=== PATIENT | male | born 1975 | race Caucasian/White ===

== ENCOUNTER 2021-12-13 16:24 | Inpatient (IN) | payer SELFPAY ==
[2021-12-13 16:26] VITALS: BP 153/101; PULSE 121; RESP 17; TEMP 36.3; O2SAT 96; BMI 31.0
--- NOTE | 2021-12-13 16:50 | EX.ED.SAOD ---
HPI History of Present Illness Chief Complaint: Substance Abuse Informant: patient Onset/Context/Timing Onset: Weeks Context: Gradual Onset Timing: Continuous Current Severity: Mild Maximum Severity: Mild Associated Symptoms Associated Symptoms: Positive for vomiting* and diarrhea*; Negative for fever*, rash*, seizure, tremor and palpatations Narrative Narrative: 46-year-old male has a history of diabetes diet-controlled and alcohol abuse. States he drinks about a liter of vodka a day. His last detox was about a year ago was in [place] and he went to [place] for 30 days. He is enrolled in a program in [place] but he has to go through inpatient detox first before they can take him there so he and his family are asked and he can be detox here in the hospital and then they will drive him to [place] to start the program. Prior similar symptoms: Yes Recent Illness/Hospitalization: No PFSH PFSH Medical History Acute alcoholism Alcohol abuse Diabetes mellitus, type 2 HLD (hyperlipidemia) Hypertension Tobacco use Home Medications NK 12/13/21 [History Last Taken Unknown] Allergy/AdvReac Type Severity Reaction Status Date / Time No Known Allergies Allergy Verified 12/13/21 16:26 Surgical History (Updated 12/13/21 @ 17:[address] Gill Campos MD) No history of previous surgery Social History (Updated 12/13/21 @ 17:[address] Gill Campos MD) household members: none Smoking Status: Current every day smoker tobacco type: cigarettes alcohol intake: current alcohol intake frequency: 3 or more drinks per day details: 1 pint-1L 80 proof vodka daily, started age 16. substance use type: does not use ROS ROS ED ROS Narrative Nausea and vomiting. Review of Systems ROS Unobtainable: Denies due to encephalopathy Constitutional Constitutional ED: Denies fever(s) or subjective Eyes Eyes: Denies change in vision ENT ENT ED: Denies ear pain or rhinorrhea Cardiovascular Cardiovascular: Denies chest pain or palpitations Respiratory/Chest Respiratory/Chest: Denies cough or dyspnea Gastrointestinal Gastrointestinal: Reports diarrhea, nausea and vomiting; Denies abdominal pain Genitourinary Genitourinary ED: Denies dysuria or urinary frequency Musculoskeletal Musculoskeletal: Reports back pain; Denies arthralgias or myalgias Integumentary Denies abscess or rash Neurologic Neurologic: Denies headache(s) Psychiatric Psychiatric: Denies anxiety or depression Endocrine Endocrinology: Denies polydipsia or polyuria Hematologic/Lymphatic Hematologic/Lymphatic: Denies easy bruising Allergic/Immunologic Allergic/Immunologic ED: Denies urticaria EXAM Physical Exam Narrative Exam Narrative: 46-year-old male no acute distress vital signs stable afebrile. He does have elevated blood pressure 153/101. Otherwise stable. Afebrile. H EENT exam unremarkable. Atraumatic. Lungs are clear. Heart regular rhythm rate of 120. No murmur. Abdomen soft nontender normal bowel sounds no peritoneal signs. Moving all 4 extremities. Neurologically is awake and alert with no focal motor deficits. Const Vital Signs: 12/13/21 16:26 Temperature 97.3 F L Temperature Source Temporal Pulse Rate 121 H Respiratory Rate 17 Blood Pressure 153/101 H Blood Pressure Mean 118 Pulse Ox 96 Oxygen Delivery Method Room Air Positive well nourished, well developed and obese; Negative for cachectic, contractures or unkempt General Appearance ED: well developed and NAD; Negative for unkempt, cachectic, contractures or pallor Nutritional Appearance: obese; Negative for cachectic HEENT Reports moist mucous membranes atraumatic; Negative for trauma or tenderness Eyes PERRL and EOMs intact bilaterally General Eye ED: Negative for pale conjunctiva or scleral icterus Neck no lymphadenopathy and no JVD Thyroid: Negative for tender Lymph Lymphatic: no lymphadenopathy noted; Negative for lymphadenopathy Chest Wall inspection of chest normal and palpation of chest normal Resp normal respiratory effort and clear to auscultation bilaterally Auscultation: Negative for rales, rhonchi, wheezes or other Cardio regular rhythm, S1 normal heart sound, S2 normal heart sound and no murmurs; Negative for regular rate Rate: tachycardic GI soft to palpation, non-tender, non-distended and no masses Inspection: Negative for abdominal distention Palpation: Negative for tender, guarding or rigid Back/Spine no CVA tenderness General Back: Negative for CVA tenderness Extremity General Extremety ED: Negative for edema or tenderness General Extremity: Negative for edema Neuro oriented x3 Sensorium / Orientation: alert, oriented to person, oriented to place and oriented to time Motor Exam: strength 5/5 throughout Psych mental status grossly normal and thought process normal Appearance: Negative for unkempt Attitude: No agitated Mood & Affect: Negative for depressed or tearful Skin General Skin Exam: Negative for jaundice or pallor Lesions: no lesions Rashes: no rashes MDM MDM MDM Narrative Medical decision making narrative: 46-year-old male requesting detox for alcohol abuse. Screening labs being obtained. I have already discussed with the hospitalist and they will be down to evaluate the patient for admission. Lab Data Attestation: I reviewed the patient's lab results. Lab results narrative: CBC shows a white count of 5. H&H 13 and 40. Platelets 174. Chemistries show potassium 3.3 gap of 20 BUN/creatinine 11 and 0.9. Liver enzymes total bilirubin, AST and ALT are elevated. Labs: Laboratory Results - last 24 hr 12/13/21 12/13/21 12/13/21 16:50 16:50 16:50 WBC 5.6 RBC 4.28 L Hgb 13.9 Hct 40.3 MCV 94.2 H MCH 32.5 H MCHC 34.5 RDW Std Deviation 44.0 H RDW Coeff of Sean 12.7 Plt Count 174 MPV 11.6 Immature Gran % (Auto) 0.400 Neut % (Auto) 54.1 Lymph % (Auto) 27.4 [place] % (Auto) 16.6 H Eos % (Auto) 0.2 Baso % (Auto) 1.3 H Absolute Neuts (auto) 3.0 Absolute Lymphs (auto) 1.52 Nucleated RBC % 0 Sodium 134 L Potassium 3.3 L Chloride 93 L Carbon Dioxide 21.0 Anion Gap 20 H BUN 11 Creatinine 0.94 Estim Creat Clear Calc 115.38 Est GFR (MDRD) Af Amer 111 Est GFR (MDRD) Non-Af 92 BUN/Creatinine Ratio 11.7 Glucose 88 Calcium 9.3 Phosphorus 2.4 L Magnesium 1.6 Total Bilirubin 2.50 H AST 328 H ALT 239 H Alkaline Phosphatase 84 Total Protein 9.0 H Albumin 4.2 Globulin 4.8 H Albumin/Globulin Ratio 0.9 Discharge Plan Dx/Rx/DC Orders Clinical Impression: Admitted to alcohol detoxification center, Acute alcoholism, History of diabetes mellitus Disposition Disposition: [facility] Discharge Date/Time: 12/13/21 17:43
--- NOTE | 2021-12-13 16:59 | HP.PCM.HOS_ITS ---
HPI - General General Date of Admission: 12/13/21 Date of Service: 12/13/21 Chief Complaint: Acute EtOH Withdrawal HPI Narrative The patient is a 46 y/o M w/ PMHx: EtOH abuse (1 pint-1L 80 proof vodka daily since ~ 16 years old), HTN, HLD, Tobacco use, Diabetes mellitus type II diagnosed ~ 1 year prior but svetlana taken any treatments who presents to the [facility] on 12/13/21 w/ noted acute EtOH withdrawal, onset starting on day of presentation following last EtOH intake this AM with onset of nausea, mild tremors. He notes having been through detox once prior in [place]. He admits to depression and anxiety with ongoing divorce in play. Patient interested in attaining sober status. Last drink was in AM on day of presentation. He appears anxious, tremulous, nausea with emesis in the ED upon evaluation. Work-up in the ED included T 97.3, HR 121, BP 153/101, RR 17, 96% on RA, pending CBC, CMP, UDS, EtOH level pending upon evaluation. [facility] Medical History Acute alcoholism Alcohol abuse Diabetes mellitus, type 2 HLD (hyperlipidemia) Hypertension Tobacco use Home Medications NK 12/13/21 [History Last Taken Unknown] Allergy/AdvReac Type Severity Reaction Status Date / Time No Known Allergies Allergy Verified 12/13/21 16:26 adopted (Does not know any maternal/paternal family history.) Surgical History (Updated 12/13/21 @ 17:[address] Gill Campos MD) No history of previous surgery no surgical history Social History (Updated 12/13/21 @ 17:[address] Gill Campos MD) household members: none Smoking Status: Current every day smoker tobacco type: cigarettes Smoking packs per day: 1 Smoking cigarettes per day: 20.0 Years smoked: 1 Smoking pack-years: 1.00 alcohol intake: current alcohol intake frequency: 3 or more drinks per day details: 1 pint-1L 80 proof vodka daily, started age 16. substance use type: does not use ROS ROS Narrative Admission Review of Systems: CONSTITUTIONAL: No weight loss, fever, chills, + weakness or fatigue. HEENT: Eyes: No visual loss, blurred vision, double vision or yellow sclerae. Ears, Nose, Throat: No hearing loss, sneezing, congestion, runny nose or sore throat. SKIN: No rash or itching, lesions, wounds. CARDIOVASCULAR: No chest pain, chest pressure or chest discomfort, palpitations, edema, orthopnea, syncopal events. RESPIRATORY: No shortness of breath, cough or sputum, wheezing, hemoptysis. GASTROINTESTINAL: + Anorexia, nausea, vomiting, No diarrhea, abdominal pain, melena, BRBPR. GENITOURINARY: No dysuria, frequency, urgency or retention. NEUROLOGICAL: + Tremors, No headache, dizziness, syncope, paralysis, ataxia, numbness or tingling in the extremities, focal weakness, change in bowel or bladder control, seizure. MUSCULOSKELETAL: No muscle, back pain, joint pain or stiffness. HEMATOLOGIC: No anemia, bleeding or bruising. LYMPHATICS: No enlarged nodes. No history of splenectomy. PSYCHIATRIC: + history of depression or anxiety. ENDOCRINOLOGIC: No reports of sweating, cold or heat intolerance. No polyuria or polydipsia. ALLERGIES: No history of asthma, hives, eczema or rhinitis. Vital Signs Vital Signs Vital Signs: 12/13/21 16:26 Temperature 97.3 F L Temperature Source Temporal Pulse Rate 121 H Respiratory Rate 17 Blood Pressure 153/101 H Blood Pressure Mean 118 Pulse Ox 96 Oxygen Delivery Method Room Air Weight Weight: 241 lb 10.026 oz Body Mass Index (BMI) 31.0 Physical Exam Narrative Physical Examination: General: Awake, alert, oriented x 3 and cooperative, seated upright in the ED bed, nauseous, bouts of emesis while present. Skin: Normal color, normal turgor, no icterus, no cyanosis. HEENT: AT/NC, EOMI, PERRLA, dry MM, no carotid bruits or JVD noted. Lungs: Mild diminished, greater bases, appropriate effort no rales, ronchi or wheezing. Heart: Tachycardic with regular rhythm; no gallop, rub audible. Abdomen: Soft, NTTP, ND, hyperactive BS, mild HM Extremities: No cyanosis, clubbing, or edema. Neurological: Patient awake, alert, oriented as noted, cognitive function intact; pupils equally reactive to light and accommodation, cranial nerves II- XII grossly normal, moving all 4 extremities, no focal deficits, strength moderately global decrease secondary to acute presentation, tremulous. Psychiatric: Affect appears fatigued, ill-appearing, tearful with discussions with admission of depression and anxiety. Results Lab / Micro Data Result Diagrams: 12/13/21 16:50 12/13/21 16:50 Assessment & Plan Assessment/Plan (1) Alcohol withdrawal: QUALIFIERS: Complication of substance-induced condition: uncomplicated Qualified Code(s): F10.230 - Alcohol dependence with withdrawal, uncomplicated PLAN: The patient is a 46 y/o M w/ PMHx: EtOH abuse (1 pint-1L 80 proof vodka daily since ~ 16 years old), HTN, HLD, Tobacco use, Diabetes mellitus type II diagnosed ~ 1 year prior but svetlana taken any treatments who presents to the [facility] on 12/13/21 w/ noted acute EtOH withdrawal, onset starting on day of presentation. #1. Acute EtOH Withdrawal: Will admit to MS, routine labs obtained in the ED upon presentation and pending upon evaluation. Given interest in sobriety, will initiate and continue on protocol with taper course of Phenobarbital, scheduled gabapentin for seizure prophylaxis, as needed Catapres, Bentyl, Vistaril, IV fluids, IV antiemetics, Tylenol as needed for pain. Will consult Case management for assistance for transition to next level of rehabilitation care. Mag, phos pending. Maintain on CIWA protocol concurrently. #2. Diabetes mellitus type II: From current list denies any medications, noting diabetic history, will obtain A1c to be cautious, in the interim we will maintain on ADA diet, accu checks w/ ISS. #3. Anxiety and Depression: Not on regimen, playing a large role in his abuse, will benefit from medications and counseling with next phase of his treatment. #4. Hypertension: Patient with hypertensive history, BP is elevated in the ED however presenting with acute withdrawal, not on regimen, will continue to monitor and add oral regimen if appropriate, as needed IV hydralazine in interim. #5. Hyperlipidemia: Not on regimen, defer to outpatient. #6. Tobacco Abuse: Encouraged cessation, inpatient consultation per RT, NR if desired. #7. Obesity: Weight loss and lifestyle changes encouraged. #8. DVT prophylaxis: Low risk given presentation, encourage ambulation. Charges/Coding Visit Charges Inpatient E&M: 96045 Init Hosp L3
[2021-12-13 17:05] LABS: Absolute Lymphocyte Count 1.52 X10^3/uL (0.83-4.51); Basophil# 0.07 X10^3/uL; Basophil% 1.3 % (0-1); Eosinophil# 0.01 X10^3/uL; Eosinophils% 0.2 % (0-5); Hematocrit 40.3 % (40-54); Hemoglobin 13.9 g/dL (13.0-16.5); Lymphocyte # 1.52 X10^3/ul (0.83-4.51); Lymphocyte % 27.4 % (19-41); Mean Corp Hgb Conc 34.5 g/dL (32-36); Mean Corpuscular Hgb 32.5 pg (27.0-32.0); Mean Corpuscular Volume 94.2 fL (80-94); Mean Platelet Vol. 11.6 fl (6.2-12.0); Monocyte# 0.92 X10^3/uL; Monocyte% 16.6 % (0-10); NRBC Flagged by Analyzer 0 % (0-5); Neutrophil # 3.01 X10^3/uL (2.7-7.7); Neutrophil % 54.1 % (47-70); Platelet Count 174 K/mm3 (150-450); RBC Distribution Width CV 12.7 % (11.6-14.6); Red Blood Count 4.28 M/mm3 (4.6-6.2); White Blood Count 5.6 K/mm3 (4.4-11.0)
[2021-12-13 17:06] VITALS: BP 153/101; PULSE 121; RESP 17; TEMP 36.3; O2SAT 96
[2021-12-13 17:36] LABS: Phosphorus 2.4 mg/dL (2.5-4.9)
[2021-12-13 17:37] LABS: ALB/GLOB Ratio 0.9 RATIO (0.9-2.4); AST(SGOT) 328 U/L (15-37); Alanine Aminotransfer ALT/SGPT 239 U/L (16-61); Albumin, Serum 4.2 g/dL (3.2-5.0); Alkaline Phosphatase 84 U/L (45-117); Anion Gap 20 (5-15); BUN 11 mg/dL (7-18); BUN/Creat Ratio 11.7 RATIO (10-20); Calcium,Total 9.3 mg/dL (8.5-10.1); Chloride 93 mmol/L (98-107); Creatinine, Serum 0.94 mg/dL (0.70-1.30); EST Glomerular Filtration Rate 92 mL/min (>60); Est Glom Filt Rate - Afr Amer 111 mL/min (>60); Estimated Creatinine Clearance 115.38 ml/min; Globulin 4.8 g/dL (2.2-4.2); Glucose 88 mg/dL (74-106); Magnesium 1.6 mg/dL (1.6-2.6); Potassium 3.3 mmol/L (3.5-5.1); Sodium Level 134 mmol/L (136-145)
[2021-12-13 17:48] VITALS: BMI 30.5
[2021-12-13 17:58] LABS: Amphetamine Urine VISTA NEGATIVE (<1000 ng/mL); Barbiturate Urine VISTA NEGATIVE (< 200 ng/mL); Benzodiazepine Urine VISTA NEGATIVE (< 200 ng/mL); Cocaine Urine VISTA NEGATIVE (< 300 ng/mL); Ecstacy Urine VISTA NEGATIVE (< 500 ng/mL); Methadone Urine VISTA NEGATIVE (< 300 ng/mL); PCP Urine VISTA NEGATIVE (< 25 ng/mL); THC Urine VISTA NEGATIVE (< 50 ng/mL); Vista UDS pH Range 6
[2021-12-13] MEDS: Lactated Ringers 1,000 ML 125 ML IV (18:52)
[2021-12-13] MEDS: Phenobarbital 32.4 MG Tablet 64.8 MG PO ×2 (18:56→22:18)
[2021-12-13] MEDS: Ibuprofen 600 MG Tablet PO (18:59)
[2021-12-13] MEDS: Dicyclomine 10 MG Capsule 20 MG PO (19:00)
[2021-12-13] MEDS: Gabapentin 300 MG Capsule PO (19:00)
[2021-12-13 19:45] VITALS: O2SAT 96
[2021-12-13 20:27] VITALS: BP 150/92; PULSE 93; RESP 16; TEMP 36.6; O2SAT 97
[2021-12-13] MEDS: traZODone 100 MG Tablet PO (22:18)
[2021-12-13 22:25] LABS: Bedside Glucose 87 mg/dL (74-106)
[2021-12-14] VITALS (7 sets, daily range): BP systolic 137–160; BP diastolic 71–95; PULSE 71–93; RESP 16–18; TEMP 36.6–37.3; O2SAT 97–100
[2021-12-14] MEDS: Phenobarbital 32.4 MG Tablet 64.8 MG PO ×6 (02:19→21:54)
[2021-12-14] MEDS: Ondansetron 4 MG/2 ML Vial IV (02:24)
[2021-12-14] MEDS: Ibuprofen 600 MG Tablet PO ×2 (02:24→13:23)
[2021-12-14] MEDS: 0.9% Saline Lock 10 ML Syringe IV ×2 (02:24→18:13)
[2021-12-14] MEDS: Dicyclomine 10 MG Capsule 20 MG PO (06:12)
[2021-12-14] MEDS: Acetaminophen 325 MG Tablet 650 MG PO ×2 (06:12→16:01)
[2021-12-14] MEDS: hydrOXYzine PAM 25 MG Capsule 50 MG PO ×2 (06:12→13:24)
[2021-12-14 06:25] LABS: Bedside Glucose 89 mg/dL (74-106)
[2021-12-14 07:45] LABS: Hemoglobin A1c 4.9 % (3.8-5.6)
[2021-12-14] MEDS: Gabapentin 300 MG Capsule PO ×2 (08:22→18:13)
[2021-12-14] MEDS: Folic Acid 1 MG Tablet PO (08:22)
[2021-12-14] MEDS: Thiamine Hydrochloride 100 MG Tablet PO (08:22)
--- NOTE | 2021-12-14 09:39 | PN.HOSP_ITS ---
Subjective Subjective Patient seen and examined. He complains of some back pain which is chronic, and also complains of some anxiety and tremors. REview of systems is otherwise negative. Objective Data Objective Data Vital Signs: Vital Signs Temp Pulse Resp BP Pulse Ox 99.1 F 76 18 152/86 H 98 12/14/21 08:18 12/14/21 08:18 12/14/21 08:18 12/14/21 08:18 12/14/21 08:18 Oxygen Delivery Method Room Air Weight: 238 lb Body Mass Index (BMI) 30.5 Intake & Output: Intake and Output for Last 24 Hours 12/12/21 12/13/21 12/14/21 23:59 23:59 23:59 Intake Total 1899 / 1899 Balance 1899 Lab / Micro Data Result Diagrams: 12/13/21 16:50 12/13/21 16:50 Labs: Laboratory Results - last 24 hr 12/13/21 16:50: WBC 5.6, RBC 4.28 L, Hgb 13.9, Hct 40.3, MCV 94.2 H, MCH 32.5 H, MCHC 34.5, RDW Std Deviation 44.0 H, RDW Coeff of Sean 12.7, Plt Count 174, MPV 11.6, Immature Gran % (Auto) 0.400, Neut % (Auto) 54.1, Lymph % (Auto) 27.4, [place] % (Auto) 16.6 H, Eos % (Auto) 0.2, Baso % (Auto) 1.3 H, Absolute Neuts (auto) 3.0, Absolute Lymphs (auto) 1.52, Nucleated RBC % 0 12/13/21 16:50: Sodium 134 L, Potassium 3.3 L, Chloride 93 L, Carbon Dioxide 21.0, Anion Gap 20 H, BUN 11, Creatinine 0.94, Estim Creat Clear Calc 115.38, Est GFR (MDRD) Af Amer 111, Est GFR (MDRD) Non-Af 92, BUN/Creatinine Ratio 11.7, Glucose 88, Calcium 9.3, Magnesium 1.6, Total Bilirubin 2.50 H, AST 328 H, ALT 239 H, Alkaline Phosphatase 84, Total Protein 9.0 H, Albumin 4.2, Globulin 4.8 H , Albumin/Globulin Ratio 0.9 12/13/21 16:50: Ethyl Alcohol 196.0 12/13/21 16:50: Phosphorus 2.4 L 12/13/21 17:24: Urine Opiates Screen NEGATIVE, Urine Methadone Screen NEGATIVE, Ur Barbiturates Screen NEGATIVE, Ur Phencyclidine Scrn NEGATIVE, Ur Amphetamines Screen NEGATIVE, MDMA (Ecstasy) Screen NEGATIVE, U Benzodiazepines Scrn NEGATIVE, Urine Cocaine Screen NEGATIVE, U Cannabinoids Screen NEGATIVE, Ur Drug Screen Comment 12/13/21 22:21: POC Glucose 87 12/14/21 05:16: Hemoglobin A1c 4.9 12/14/21 06:17: POC Glucose 89 Physical Exam Const alert, oriented x3 and no apparent distress Exam Limitations: no limitations HEENT head/scalp atraumatic and moist oral mucous membranes Head and Scalp: normocephalic Eyes PERRL, EOMs intact bilaterally and conjunctivae normal Neck no lymphadenopathy, supple and no JVD Resp normal respiratory effort, no retractions, no use of accessory muscles and clear to auscultation bilaterally Cardio regular rate, regular rhythm, S1 normal heart sound, S2 normal heart sound and no murmurs GI normal to inspection, nondistended, normoactive bowel sounds, soft to palpation, non-tender and non-distended Extremity normal to inspection, full ROM and no clubbing, cyanosis or edema Peripheral Pulses: Yes pulses 2+ throughout Skin no rashes or lesions noted Neuro oriented x3, CN's II-XII intact bilaterally and moves all extremities Sensorium / Orientation: awake and alert Psych affect normal Assessment & Plan Assessment/Plan (1) Alcohol withdrawal: QUALIFIERS: Complication of substance-induced condition: uncomplicated Qualified Code(s): F10.230 - Alcohol dependence with withdrawal, uncomplicated PLAN: #Acute alcohol withdrawal * on alcohol withdrawal protocol with phenobarbital * monitor CIWA score * thiamine, multivite and folic acid * adjunctive meds for symptomatic relief * #Hypokalemia: K was 3.3 yesterday and was replaced. Repeat BMP pending today #Elevated BP: * BP is 152/86. Not a known hypertensive. * May be because of alcohol withdrawal. on clonidine prn which should help with BP. * If it remains elevated, will consider starting oral BP meds * #Elevated liver enzymes * total bilirubin was 2.5 and AST/ALT are 328/239 * likely due to chronic alcohol abuse. * WIll monitor #TYpe 2 diabetes mellitus * appears to be diet controlled * ISS. Accuchecks ACHS * #Nicotine dependence: counseled to quit. DVT prophylaxis; low risk, counseled to ambulate Charges/Coding Visit Charges Inpatient E&M: 32434 Subs Hosp L2
[2021-12-14 10:36] LABS: Anion Gap 10 (5-15); BUN 11 mg/dL (7-18); BUN/Creat Ratio 14.3 RATIO (10-20); Calcium,Total 9.1 mg/dL (8.5-10.1); Chloride 95 mmol/L (98-107); Creatinine, Serum 0.77 mg/dL (0.70-1.30); EST Glomerular Filtration Rate 116 mL/min (>60); Est Glom Filt Rate - Afr Amer 140 mL/min (>60); Estimated Creatinine Clearance 140.85 ml/min; Glucose 79 mg/dL (74-106); Sodium Level 132 mmol/L (136-145)
[2021-12-14 11:01] LABS: Bedside Glucose 154 mg/dL (74-106)
[2021-12-14 13:02] LABS: Magnesium 1.7 mg/dL (1.6-2.6)
--- NOTE | 2021-12-14 13:04 | ADDICTION ---
This typewriter aligner met with PT to conduct ASAM, MSE, AUDIT, DUDIT assessments and to plan for d/c. PT A+Ox4 and participated actively. All assessments completed and placed in PT's chart. PT plans to f/u with follow-up treatment services, however he wanted to discuss it with his family upon d/c. This worker offered resources based on his listed wants and needs. PT did not indicate a need for transportation post d/c from [facility].
[2021-12-14] MEDS: Potassium Chloride Oral Tablet 20 MEQ 60 MEQ PO (13:23)
[2021-12-14 15:55] LABS: Bedside Glucose 114 mg/dL (74-106)
--- NOTE | 2021-12-14 16:03 | CHAPLAIN ---
Type of Pastoral Visit _x__ Initial Visit ___ Follow-up Visit ___ On-call Visit ___ General Patient Visit ___ Spiritual Assessment ___ Family Conference ___ Bereavement ___ Rapid Response ___ Code Blue ___ Other (describe below) Pastoral Care Referral From _x__ Patient ___ Family ___ Nurse ___ Physician ___ High School Music Director ___ Induction Coordination Engineer ___ Other (describe below) Sacrament/Intervention _x__ Active listening ___ Anointing ___ Shinto ___ Bereavement ___ Communion _x__ Estefani exploration ___ _x__ Life review _x__ Prayer ___ Reconciliation ___ Sacrament of Sick _x__ Supportive presence ___ Wedding ___ Other (describe below) Pastoral Comments found patient to be awake and watching TV; pt is welcoming of spiritual care visit; pt discloses that there are lots of things going on in his life and now he is making a decision about what kind of treatment he should enter; pt is now living alone which contributes to my drinking; pt speaks of his mother's and her great estefani in God; pt states I am slowly getting close to God in my life; asked to describe this comment opened up more conversation about his spiritual needs and desires; pt welcomed a prayer and asked for a Bible; Bible given with offer of future support as desired; pt expresses thanks for taking time to talk with him
--- NOTE | 2021-12-14 16:16 | CASEMGMT ---
Social Work Note Pt is RAMP pt. Pt is also listed as self-pay. SW in to speak with pt. SW introduced self and role at [facility]. Pt confirms he has no insurance, states he just lost his job a few weeks ago. SW asked pt if he had applied for Medicaid yet and pt states no. SW provided pt with Medicaid Application and informed pt that if he completes application while at [facility], then this worker can fax over Medicaid Application to [facility]. SW also provided pt with HCAP application and Prescription Home resources. Pt asked what the location is for [facility] and this worker informed pt that this worker doens't know, can look up the information and provided information to pt. Pt states understanding. KATHY unable to provide pt with [facility] Financial Resources as pt is not a resident of [facility]. SW looked up [facility] contact information. SW printed off contact information and provided information to pt. Pt asked this worker how long insurance lasts once pt doesn't have a job. SW informed pt that this worker is not sure, encouraged pt to follow up with his employer once he leaves [facility]. SW informed pt that he can also talk to his employer about COBRA. Pt states understanding, asked about getting prescriptions covered. SW informed pt that once pt is discharged, his prescriptions will be sent to his pharmacy and if he cannot afford them, there are prescription assistance resources such as [facility] that can assist pt with prescriptions. Pt states understanding, denied additional needs or concerns at this time. Suni Nicole PILE FABRIC KNITTER, TAPE RECORDER MECHANIC
[2021-12-14] MEDS: hydrALAZINE 20 MG/ML Vial 10 MG IV (18:13)
[2021-12-14] MEDS: traZODone 100 MG Tablet PO (21:56)
[2021-12-15 02:14] VITALS: BP 147/90; PULSE 78; RESP 16; TEMP 36.6; O2SAT 99
[2021-12-15] MEDS: Phenobarbital 32.4 MG Tablet 64.8 MG PO ×6 (02:14→21:31)
[2021-12-15 02:16] LABS: Bedside Glucose 117 mg/dL (74-106)
[2021-12-15] MEDS: hydrOXYzine PAM 25 MG Capsule 50 MG PO ×3 (06:17→16:18)
[2021-12-15] MEDS: Acetaminophen 325 MG Tablet 650 MG PO ×2 (06:17→14:19)
[2021-12-15 06:30] LABS: Bedside Glucose 114 mg/dL (74-106)
[2021-12-15 06:51] LABS: Anion Gap 7 (5-15); BUN 7 mg/dL (7-18); BUN/Creat Ratio 8.5 RATIO (10-20); Calcium,Total 9.1 mg/dL (8.5-10.1); Chloride 101 mmol/L (98-107); Creatinine, Serum 0.83 mg/dL (0.70-1.30); EST Glomerular Filtration Rate 107 mL/min (>60); Est Glom Filt Rate - Afr Amer 129 mL/min (>60); Estimated Creatinine Clearance 130.67 ml/min; Glucose 99 mg/dL (74-106); Sodium Level 137 mmol/L (136-145)
[2021-12-15 07:45] VITALS: BP 139/89; PULSE 75; RESP 18; TEMP 36.6; O2SAT 98
[2021-12-15] MEDS: Thiamine Hydrochloride 100 MG Tablet PO (07:49)
[2021-12-15] MEDS: Folic Acid 1 MG Tablet PO (07:49)
[2021-12-15] MEDS: Potassium Chloride Oral Tablet 20 MEQ 60 MEQ PO (07:49)
[2021-12-15] MEDS: Ibuprofen 600 MG Tablet PO (07:53)
--- NOTE | 2021-12-15 09:40 | PN.HOSP_ITS ---
Subjective Subjective Patient seen and examined. He complained of tremors. HE had no other complaints and review of systems is otherwise negative. Potassium today is 3.0. Objective Data Objective Data Vital Signs: Vital Signs Temp Pulse Resp BP Pulse Ox 97.9 F 75 18 139/89 H 98 12/15/21 07:45 12/15/21 07:45 12/15/21 07:45 12/15/21 07:45 12/15/21 07:45 Oxygen Delivery Method Room Air Weight: 238 lb Body Mass Index (BMI) 30.5 Intake & Output: Intake and Output for Last 24 Hours 12/13/21 12/14/21 12/15/21 23:59 23:59 23:59 Intake Total 3175 / 3175 Balance 3175 / 3175 Lab / Micro Data Result Diagrams: 12/13/21 16:50 12/15/21 05:45 Labs: Laboratory Results - last 24 hr 12/14/21 05:16: Sodium 132 L, Potassium 3.0 L, Chloride 95 L, Carbon Dioxide 27.0, Anion Gap 10, BUN 11, Creatinine 0.77, Estim Creat Clear Calc 140.85, Est GFR (MDRD) Af Amer 140, Est GFR (MDRD) Non-Af 116, BUN/Creatinine Ratio 14.3, Glucose 79, Calcium 9.1 12/14/21 05:16: Magnesium 1.7 12/14/21 10:55: POC Glucose 154 H 12/14/21 15:51: POC Glucose 114 H 12/14/21 21:51: POC Glucose 117 H 12/15/21 05:45: Sodium 137, Potassium 3.0 L, Chloride 101, Carbon Dioxide 29.0, Anion Gap 7, BUN 7, Creatinine 0.83, Estim Creat Clear Calc 130.67, Est GFR (MDRD) Af Amer 129, Est GFR (MDRD) Non-Af 107, BUN/Creatinine Ratio 8.5 L, Glucose 99, Calcium 9.1 12/15/21 06:15: POC Glucose 114 H Physical Exam Const alert, oriented x3 and no apparent distress Exam Limitations: no limitations HEENT head/scalp atraumatic and moist oral mucous membranes Head and Scalp: normocephalic Eyes PERRL, EOMs intact bilaterally and conjunctivae normal Neck no lymphadenopathy, supple and no JVD Resp normal respiratory effort, no retractions, no use of accessory muscles and clear to auscultation bilaterally Cardio regular rate, regular rhythm, S1 normal heart sound, S2 normal heart sound and no murmurs GI normal to inspection, nondistended, normoactive bowel sounds, soft to palpation, non-tender and non-distended Extremity normal to inspection, full ROM and no clubbing, cyanosis or edema Peripheral Pulses: Yes pulses 2+ throughout Skin no rashes or lesions noted Neuro oriented x3, CN's II-XII intact bilaterally and moves all extremities Sensorium / Orientation: awake and alert Psych affect normal Assessment & Plan Assessment/Plan (1) Alcohol withdrawal: QUALIFIERS: Complication of substance-induced condition: uncomplicated Qualified Code(s): F10.230 - Alcohol dependence with withdrawal, uncomplicated PLAN: #Acute alcohol withdrawal * on alcohol withdrawal protocol with phenobarbital * monitor CIWA score * thiamine, multivite and folic acid * adjunctive meds for symptomatic relief * #Hypokalemia: K is 3 today. Will replace aggressively and trend. #Hypertension * patient tells me today he has a history of hypertension and is supposed to be on lisinopril, but had been noncompliant. * he is requesting a script for lisinopril on discharge * currently on clonidine prn. * #Elevated liver enzymes * likely due to chronic alcohol abuse. * WIll monitor #TYpe 2 diabetes mellitus * appears to be diet controlled * ISS. Accuchecks ACHS * #Nicotine dependence: counseled to quit. DVT prophylaxis; low risk, counseled to ambulate Charges/Coding Visit Charges Inpatient E&M: 52921 Subs Hosp L2
[2021-12-15 11:11] LABS: Bedside Glucose 180 mg/dL (74-106)
--- NOTE | 2021-12-15 13:02 | CHAPLAIN ---
Type of Pastoral Visit ___ Initial Visit ___ Follow-up Visit ___ On-call Visit ___ General Patient Visit ___ Spiritual Assessment ___ Family Conference ___ Bereavement ___ Rapid Response ___ Code Blue _x__ Other (describe below) Pastoral Care Referral From ___ Patient ___ Family ___ Nurse ___ Physician ___ Auto Wash Buffer ___ Meat Cutting Teacher ___ Other (describe below) Sacrament/Intervention ___ Active listening ___ Anointing ___ Yazidism ___ Bereavement ___ Communion ___ Estefani exploration ___ ___ Life review ___ Prayer ___ Reconciliation ___ Sacrament of Sick _x__ Supportive presence ___ Wedding ___ Other (describe below) Pastoral Comments patient was walking in the halls and stopped to talk with him; pt is inviting of support and gives updates on how his night was, what he was able to read from the Bible and gave a follow up question to this computator, and stated that he is having clear thoughts about what is next for him; support and affirmation given
[2021-12-15 14:13] VITALS: BP 147/84; PULSE 75; RESP 16; TEMP 36.8; O2SAT 97
[2021-12-15 16:20] LABS: Bedside Glucose 113 mg/dL (74-106)
[2021-12-15] MEDS: traZODone 100 MG Tablet PO (21:31)
[2021-12-15 21:35] VITALS: BP 157/89; PULSE 74; RESP 16; TEMP 36.7; O2SAT 97
[2021-12-15 21:40] LABS: Bedside Glucose 107 mg/dL (74-106)
[2021-12-16 02:30] VITALS: BP 128/76; PULSE 87; RESP 16; TEMP 36.6; O2SAT 98
[2021-12-16] MEDS: Acetaminophen 325 MG Tablet 650 MG PO (02:34)
[2021-12-16] MEDS: Phenobarbital 32.4 MG Tablet 64.8 MG PO ×2 (02:34→08:26)
[2021-12-16 06:18] LABS: Anion Gap 6 (5-15); BUN 7 mg/dL (7-18); BUN/Creat Ratio 8.9 RATIO (10-20); Calcium,Total 8.8 mg/dL (8.5-10.1); Chloride 103 mmol/L (98-107); Creatinine, Serum 0.78 mg/dL (0.70-1.30); EST Glomerular Filtration Rate 113 mL/min (>60); Est Glom Filt Rate - Afr Amer 137 mL/min (>60); Estimated Creatinine Clearance 139.05 ml/min; Glucose 99 mg/dL (74-106); Potassium 3.2 mmol/L (3.5-5.1); Sodium Level 140 mmol/L (136-145)
[2021-12-16 06:20] LABS: Bedside Glucose 110 mg/dL (74-106)
[2021-12-16 07:24] VITALS: O2SAT 97
[2021-12-16 08:24] VITALS: BP 150/110; PULSE 84; RESP 18; TEMP 36.8; O2SAT 97
[2021-12-16] MEDS: Folic Acid 1 MG Tablet PO (08:26)
[2021-12-16] MEDS: Potassium Chloride Oral Tablet 20 MEQ 60 MEQ PO (08:26)
[2021-12-16] MEDS: Thiamine Hydrochloride 100 MG Tablet PO (08:26)
[2021-12-16] MEDS: Ibuprofen 600 MG Tablet PO (08:33)
[2021-12-16] MEDS: hydrOXYzine PAM 25 MG Capsule 50 MG PO (08:33)
--- NOTE | 2021-12-16 09:40 | PCM.DC.SUM ---
Providers Date of Admission: 12/13/21 Primary Care Physician: Magui Primary Care Phys Reason For Visit: ETOH ACUTE WITHDRAWAL Diagnosis Discharge Diagnosis (1) Alcohol withdrawal: Status: Acute Code(s): F10.239 - Alcohol dependence with withdrawal, unspecified Qualifiers: Complication of substance-induced condition: uncomplicated Qualified Code(s): F10.230 - Alcohol dependence with withdrawal, uncomplicated Medications at Discharge Home Medications lisinopril 10 mg PO DAILY #30 tab 12/16/21 potassium chloride [Klor-Con M20] 20 meq PO DAILY #10 tab 12/16/21 Hospital Course Operations None Procedures None Summary of Care Provided Minutes Spent on Discharge: 40 Hospital Course: Patient is a 46-year-old woman with past medical history as outlined was admitted through the ED on 12/13/2021 for acute alcohol withdrawal. His last alcohol intake was on the morning of admission. He was admitted with a complaint of nausea and mild tremors. He also had depression and anxiety due to an ongoing divorce. He was admitted and managed for acute alcohol withdrawal. He was started on alcohol withdrawal protocol with phenobarbital. Of note patient blood pressure was also elevated and he stated he had been diagnosed with high blood pressure and had been on lisinopril but had not been compliant and requested a prescription for lisinopril at discharge. Hospital course was also complicated by hypokalemia which was replaced aggressively. Patient completed a 3-day detox process successfully. He remained stable and was discharged home on 12/16/2021. He is to follow-up with his primary care doctor and follow-up with 180 on outpatient basis. Patient seen and examined prior to discharge. He had no active complaints and had an uneventful night. Review of systems otherwise negative. Labs and vitals reviewed. Medication reviewed and reconciled. Physical Exam Const alert, oriented x3 and no apparent distress General Appearance: cooperative, comfortable and well kempt Exam Limitations: no limitations HEENT normocephalic, head/scalp atraumatic, hearing grossly normal bilaterally and moist oral mucous membranes Eyes PERRL, EOMs intact bilaterally and conjunctivae normal Neck no lymphadenopathy, supple and no JVD Resp normal respiratory effort, no retractions, no use of accessory muscles and clear to auscultation bilaterally Cardio regular rate, regular rhythm, S1 normal heart sound, S2 normal heart sound and no murmurs GI normal to inspection, nondistended, normoactive bowel sounds, soft to palpation, non-tender and non-distended Extremity normal to inspection, full ROM and no clubbing, cyanosis or edema Skin no rashes or lesions noted Neuro oriented x3, CN's II-XII intact bilaterally and moves all extremities Sensorium / Orientation: awake and alert Psych affect normal Weight / BMI Weight Weight: 238 lb Body Mass Index (BMI) 30.5 ABG / Lab / Microbiology Data Result Diagrams: 12/13/21 16:50 12/16/21 05:20 Laboratory: Laboratory Results - last 24 hr 12/15/21 11:06: POC Glucose 180 H 12/15/21 16:12: POC Glucose 113 H 12/15/21 21:30: POC Glucose 107 H 12/16/21 05:20: Sodium 140, Potassium 3.2 L, Chloride 103, Carbon Dioxide 31.0, Anion Gap 6, BUN 7, Creatinine 0.78, Estim Creat Clear Calc 139.05, Est GFR (MDRD) Af Amer 137, Est GFR (MDRD) Non-Af 113, BUN/Creatinine Ratio 8.9 L, Glucose 99, Calcium 8.8 12/16/21 06:18: POC Glucose 110 H D/C Instructions Discharge Diet: Low fat / Low cholesterol Discharge Activity: Return to Normal Activity Weight Bearing Status: Weight bearing as tolerated Call your doctor if you observe: Fever of 101 or Higher, Shortness of breath, Dizziness, Swelling in the ankles and Chest pain Meaningful Use Info Meaningful Use Diagnoses (Choose all that apply): None applicable Discharge Plan Admission Admit Date/Time: 12/13/21 16:54 Primary Reason for Your Visit: acute alcohol withdrawal Attending Provider: Beverley Conteh Primary Care Provider: Care Physician,No Primary Instructions Patient Instructions: Alcohol Withdrawal: What to Expect, ED Withdrawal Alcohol Discharge Orders/Prescriptions Prescriptions: New lisinopril 10 mg tablet 10 mg PO DAILY Qty: 30 RF: 2 potassium chloride [Klor-Con M20] 20 mEq tablet,ER particles/crystals 20 meq PO DAILY Qty: 10 RF: 0 Referrals / Follow Up: Sai Espinoza MD [STAFF PHYSICIAN] - Within 2 Weeks (see to establish PCP care) Care Physician,No Primary [Primary Care Provider] - Disposition Disposition (needs filled in before D/C Order can be placed): Home, Self Care Charges/Coding Visit Charges Inpatient E&M: 61551 Disch Hosp
--- NOTE | 2021-12-16 10:20 | ADDICTION ---
This worker met with pt to discuss d/c plan and go over The Addiction workbook.
[2021-12-16 11:25] LABS: Bedside Glucose 108 mg/dL (74-106)
[2021-12-16 12:25] VITALS: BP 137/100; PULSE 87; RESP 18; TEMP 36.7; O2SAT 100
--- NOTE | 2021-12-16 13:20 | CASEMGMT ---
Social Work Note SW provided pt with additional prescription assistance resources. Suni Nicole NETWORK CONSULTANT, TAILER IN
== END 2021-12-16 13:18 | disposition home or self-care (01) | DRG 897 ==
LOC: ED 17:01 → MS3 17:07
PROVIDERS: Admitting Provider Family Medicine; Emergency Provider Emergency Medicine; Visit Provider Student in an Organized Health Care Education/Training Program
DX: F10.239 Alcohol dependence with withdrawal, unspecified (principal); E11.9 Type 2 diabetes mellitus without complications; E78.5 Hyperlipidemia, unspecified; F17.210 Nicotine dependence, cigarettes, uncomplicated; F41.9 Anxiety disorder, unspecified; E87.6 Hypokalemia; M54.9 Dorsalgia, unspecified; E66.9 Obesity, unspecified; Z68.31 Body mass index [BMI] 31.0-31.9, adult; G89.29 Other chronic pain; R03.0 Elevated blood-pressure reading, without diagnosis of hypertension; Z63.0 Problems in relationship with spouse or partner
CPT/HCPCS: 36415; 80048; 80053; 80307; 82077; 82962; 83036; 83735; 84100; 85025; 99284; 99406; J7120; A4216; J2405

== ENCOUNTER 2022-08-26 13:59 | Inpatient (IN) | payer MEDICAID, SELFPAY ==
[2022-08-26] VITALS (7 sets, daily range): BP systolic 126–146; BP diastolic 80–108; PULSE 96–134; RESP 16–20; TEMP 35.9–36.9; O2SAT 95–100; BMI 28.8; BMI 29.2
--- NOTE | 2022-08-26 14:12 | EDS_ITS ---
HPI History of Present Illness Chief Complaint: ETOH Intox Narrative Narrative: Patient is an alcoholic he is quite drunk he has been drinking at least for 3 days straight, he tells me he drank a liter of vodka today. Apparently his father went to check on him and he told his father that he wants detox. Patient is obviously quite inebriated, he is slurring his speech has quite a bit of smell fermentation and admits to quite a bit of alcohol. History and review of systems are slightly limited because of his inebriation. Does answer most basic questions. PFSH PFS Medical History Acute alcoholism Alcohol abuse Diabetes mellitus, type 2 HLD (hyperlipidemia) Hypertension Tobacco use Home Medications NK 08/26/22 [History Last Taken Unknown] Allergy/AdvReac Type Severity Reaction Status Date / Time No Known Allergies Allergy Verified 08/26/22 14:00 Surgical History No history of previous surgery Social History household members: none Smoking Status: Current every day smoker tobacco type: cigarettes alcohol intake: current alcohol intake frequency: 3 or more drinks per day details: 1 pint-1L 80 proof vodka daily, started age 16. substance use type: does not use ROS ROS ED ROS Narrative Past medical history: Reviewed, includes alcoholism, hypertension, borderline diabetes but he is not being treated for diabetes. Medications: Reviewed Social history: Lives by himself, he is unemployed, he drinks daily. Review of systems: All systems negative except as indicated General: No fever ENT: No upper airway congestion, normal voice Neck: No neck pain Cardiovascular: No chest pain Respiratory: No shortness of breath or cough Gastrointestinal: No abdominal pain, nausea vomiting or diarrhea Genitourinary: No dysuria Musculoskeletal: Denies myalgias no difficulty with ambulation Skin: No rash Neurological: Imbalance EXAM Physical Exam Narrative Exam Narrative: Physical exam General: Patient is awake, he is slurring his speech, however he answers most basic questions. He does not appear in significant distress. Head: Normocephalic, Atraumatic Eyes: Conjunctiva not pale ENT: Somewhat dry mucous membranes. Smell of fermentation on his breath Neck: Supple, Nontender, No lymphadenopathy Cardiovascular: Regular tachycardia no obvious murmurs Respiratory: No distress, coarse bilateral breath sounds. No respiratory dis tress Abdomen: Soft, Nontender, Nondistended Back: Nontender, Normal Inspection. Negative for: CVA tenderness Extremities: Nontender, No edema Skin: Normal color, No rash Neurological: Alert, some cerebral dysfunction but otherwise no focal deficit Const Vital Signs: 08/26/22 14:00 08/26/22 14:32 08/26/22 16:30 Temperature 96.6 F L Temperature Source Temporal Pulse Rate 133 H 99 107 H Respiratory Rate 16 20 H 18 Blood Pressure 126/99 H 139/80 H 139/85 H Blood Pressure Mean 108 99 103 Pulse Ox 95 98 96 Oxygen Delivery Method Room Air Room Air Room Air MDM MDM MDM Narrative Medical decision making narrative: A. Problems addressed ( does not have to be diagnoses) Patient is quite tachycardic. He is dehydrated. B. Amount and/or complexity of the data (2 out of 3) 1. Any 3 Review of prior external note Review of the results of each test Ordering I discussed the patient with father who was in the room who told me his prior medical history his alcoholism history. 2. Independent interpretation of test Telemetry: Sinus tachycardia in the 130s without ectopy EKG Bedside ultrasound X-ray read by me I have thought about doing the following tests but the patient 3. Discussion of management with external healthcare provider C. Risk of complications and/or morbidity I have thought about admitting the patient High risk parenteral controlled substances Drug therapy requiring intensive monitoring for toxicity The following treatments were considered The following medications were considered The following systemic symptoms have placed the patient at high probability of high risk condition Prescription medication was considered however the patient decided to table take [id number] medication Patient has a chronic history of which is not at goal therapy Patient is having an exacerbation or severe exacerbation of Patient has the following social determinants of health and it impacts their health care:, Patient as noted above is an alcoholic he sometimes is noncompliant with medications, he does not have transportation, he cannot provide his basic medical care while intoxicated. Lab Data Labs: Laboratory Results - last 24 hr 08/26/22 08/26/22 08/26/22 14:20 14:20 14:20 WBC 12.3 H RBC 5.03 Hgb 15.9 Hct 46.7 MCV 92.8 MCH 31.6 MCHC 34.0 RDW Std Deviation 43.5 RDW Coeff of Sean 12.8 Plt Count 392 MPV 11.0 Immature Gran % (Auto) 0.200 Neut % (Auto) 63.4 Lymph % (Auto) 24.2 [place] % (Auto) 10.9 H Eos % (Auto) 0.1 Baso % (Auto) 1.2 H Absolute Neuts (auto) 7.8 H Absolute Lymphs (auto) 2.99 Nucleated RBC % 0 PT 13.5 INR 1.1 Sodium 142 Potassium 3.7 Chloride 101 Carbon Dioxide 28.0 Anion Gap 13 BUN 10 Creatinine 0.93 Estim Creat Clear Calc 115.39 Est GFR (MDRD) Af Amer 112 Est GFR (MDRD) Non-Af 93 BUN/Creatinine Ratio 10.7 Glucose 97 Calcium 9.4 Total Bilirubin 1.10 H AST 166 H ALT 279 H Alkaline Phosphatase 116 Total Protein 9.1 H Albumin 4.5 Globulin 4.6 H Albumin/Globulin Ratio 1.0 Lipase 68 L Ethyl Alcohol 08/26/22 14:20 WBC RBC Hgb Hct MCV MCH MCHC RDW Std Deviation RDW Coeff of Sean Plt Count MPV Immature Gran % (Auto) Neut % (Auto) Lymph % (Auto) [place] % (Auto) Eos % (Auto) Baso % (Auto) Absolute Neuts (auto) Absolute Lymphs (auto) Nucleated RBC % PT INR Sodium Potassium Chloride Carbon Dioxide Anion Gap BUN Creatinine Estim Creat Clear Calc Est GFR (MDRD) Af Amer Est GFR (MDRD) Non-Af BUN/Creatinine Ratio Glucose Calcium Total Bilirubin AST ALT Alkaline Phosphatase Total Protein Albumin Globulin Albumin/Globulin Ratio Lipase Ethyl Alcohol 431.0 H* EKG Initial EKG: Comments: Sinus rhythm with a rate of 104. Normal AK and QTc intervals. No acute. Interpreted by emergency Ischemic changes Discharge Plan Triage Chief Complaint: ETOH Intox ED Provider: Iron Shepherd Dx/Rx/DC Orders Clinical Impression: Alcohol abuse, Alcohol withdrawal, Acute dehydration Prescriptions: No Action NK Primary Care Provider: Care Physician,No Primary Referrals: Care Physician,No Primary [Primary Care Provider] - Disposition Disposition: [facility]
--- NOTE | 2022-08-26 14:16 | EKG12_ITS ---
Test Reason : ETOH Blood Pressure : / mmHG Vent. Rate : 104 BPM Atrial Rate : 104 BPM P-R Int : 156 ms QRS Dur : 084 ms QT Int : 348 ms P-R-T Axes : 062 034 062 degrees QTc Int : 457 ms Sinus tachycardia Confirmed by REX JAMESON, ANDREWS ([id number]), offline editor PABLO BAHENA ([id number]) on 08/30/2022 12:26:53 PM Referred By: Confirmed By:ANDREWS GOODMAN MD
[2022-08-26 14:39] LABS: Absolute Lymphocyte Count 2.99 X10^3/uL (0.83-4.51); Absolute Neutrophil Count 7.8 X10^3/uL (2.0-7.7); Basophil# 0.15 X10^3/uL; Basophil% 1.2 % (0-1); Eosinophil# 0.01 X10^3/uL; Eosinophils% 0.1 % (0-5); Hematocrit 46.7 % (40-54); Hemoglobin 15.9 g/dL (13.0-16.5); Lymphocyte # 2.99 X10^3/ul (0.83-4.51); Lymphocyte % 24.2 % (19-41); Mean Corpuscular Hgb 31.6 pg (27.0-32.0); Mean Corpuscular Volume 92.8 fL (80-94); Monocyte# 1.35 X10^3/uL; Monocyte% 10.9 % (0-10); NRBC Flagged by Analyzer 0 % (0-5); Neutrophil # 7.82 X10^3/uL (2.7-7.7); Neutrophil % 63.4 % (47-70); Platelet Count 392 K/mm3 (150-450); RBC Distribution Width CV 12.8 % (11.6-14.6); RBC Distribution Width SD 43.5 fl (35.1-43.9); Red Blood Count 5.03 M/mm3 (4.6-6.2); White Blood Count 12.3 K/mm3 (4.4-11.0)
[2022-08-26] MEDS: 0.9% Normal Saline 1,000 ML 1000 ML IV (14:41)
[2022-08-26 14:52] LABS: AST(SGOT) 166 U/L (15-37); Alanine Aminotransfer ALT/SGPT 279 U/L (16-61); Albumin, Serum 4.5 g/dL (3.2-5.0); Alkaline Phosphatase 116 U/L (45-117); Anion Gap 13 (5-15); BUN 10 mg/dL (7-18); BUN/Creat Ratio 10.7 RATIO (10-20); Calcium,Total 9.4 mg/dL (8.5-10.1); Chloride 101 mmol/L (98-107); Creatinine, Serum 0.93 mg/dL (0.70-1.30); EST Glomerular Filtration Rate 93 mL/min (>60); Est Glom Filt Rate - Afr Amer 112 mL/min (>60); Estimated Creatinine Clearance 115.39 ml/min; Globulin 4.6 g/dL (2.2-4.2); Glucose 97 mg/dL (74-106); International Normalized Ratio 1.1; Lipase 68 U/L (73-393); Potassium 3.7 mmol/L (3.5-5.1); Protein, Total 9.1 g/dL (6.4-8.2); Prothrombin Time (Protime)PT. 13.5 SECONDS (11.7-14.9); Sodium Level 142 mmol/L (136-145)
[2022-08-26] MEDS: Ondansetron 4 MG/2 ML Vial IV (16:28)
--- NOTE | 2022-08-26 17:23 | PCM.HP.STD ---
HPI - General General Date of Admission: 08/26/22 Date of Service: 08/26/22 Chief Complaint: EtOH detoxification request, onset withdrawal symptoms. HPI Narrative The patient is a 47 y/o M w/ PMHx: EtOH abuse (1 pint-1L 80 proof vodka daily since ~ 16 years old) most recently underwent detoxification 12/2021 and reports remaining sober x 2 weeks following with resumption heavy EtOH intake following, Chronically elevated LFTs/Chronic EtOH hepatitis, HTN, HLD, Tobacco use, Hx Diabetes mellitus type II (12/14/21 HgbA1c 4.9%) brought in per his father who found him heavily intoxicated, drinking again with last intake just prior to ED presentation but per patient he requested that he be brought in because he fears his demise secondary to continued abuse. Patient interested in attaining sober status still and did complete the treatment the last time he presented. Patient in the ED does report onset of some withdrawal symptoms through his stay as he notes he normally drinks continuously with now onset mild nausea, mild racing heart, anxiousness, mild tremors. Work-up in the ED included T98.2, heart 117, BP 139/81, respiratory rate 20, #room air, CBC with WC 12.3, hemoglobin 15.9, platelet 392 with left shift, unremarkable coags, CMP with total bilirubin 1.10, AST/LT 166/279, lipase 68, ethyl alcohol level 431, rapid COVID antigen negative. In the ED patient ministered 1 L normal saline bolus as well as Zofran 4 mg IV x1. PFSH Medical History Acute alcoholism Alcohol abuse Diabetes mellitus, type 2 HLD (hyperlipidemia) Hypertension Tobacco use Home Medications NK 08/26/22 [History Last Taken Unknown] Allergy/AdvReac Type Severity Reaction Status Date / Time No Known Allergies Allergy Verified 08/26/22 14:00 Surgical History No history of previous surgery Social History household members: none Smoking Status: Current every day smoker tobacco type: cigarettes alcohol intake: current alcohol intake frequency: 3 or more drinks per day details: 1 pint-1L 80 proof vodka daily, started age 16. substance use type: does not use ROS ROS Narrative Admission Review of Systems: CONSTITUTIONAL: No weight loss, fever, chills, + weakness or fatigue. HEENT: Eyes: No visual loss, blurred vision, double vision or yellow sclerae. Ears, Nose, Throat: No hearing loss, sneezing, congestion, runny nose or sore throat. SKIN: No rash or itching, lesions, wounds. CARDIOVASCULAR: No chest pain, chest pressure or chest discomfort, palpitations, edema, orthopnea, syncopal events. RESPIRATORY: No shortness of breath, cough or sputum, wheezing, hemoptysis. GASTROINTESTINAL: + Anorexia, nausea, No vomiting, diarrhea, abdominal pain, melena, BRBPR. GENITOURINARY: No dysuria, frequency, urgency or retention. NEUROLOGICAL: + Tremors, No headache, dizziness, syncope, paralysis, ataxia, numbness or tingling in the extremities, focal weakness, change in bowel or bladder control, seizure. MUSCULOSKELETAL: No muscle, back pain, joint pain or stiffness. HEMATOLOGIC: No anemia, bleeding or bruising. LYMPHATICS: No enlarged nodes. No history of splenectomy. PSYCHIATRIC: + history of depression or anxiety. ENDOCRINOLOGIC: No reports of sweating, cold or heat intolerance. No polyuria or polydipsia. ALLERGIES: No history of asthma, hives, eczema or rhinitis. Vital Signs Vital Signs Vital Signs: 08/26/22 14:00 08/26/22 14:32 08/26/22 16:30 Temperature 96.6 F L Temperature Source Temporal Pulse Rate 133 H 99 107 H Respiratory Rate 16 20 H 18 Blood Pressure 126/99 H 139/80 H 139/85 H Blood Pressure Mean 108 99 103 Pulse Ox 95 98 96 Oxygen Delivery Method Room Air Room Air Room Air Weight Weight: 225 lb Body Mass Index (BMI) 28.8 Physical Exam Narrative Physical Examination: General: Awake, alert, oriented x 3 and cooperative, seated upright in the ED bed, reports nauseated, starting to be tremulous he notes, feels now like he is having withdrawal symptoms. Skin: Normal color, normal turgor, no icterus, no cyanosis. HEENT: AT/NC, EOMI, PERRLA, dry MM, no carotid bruits or JVD noted. Lungs: Mild diminished, greater bases, appropriate effort no rales, ronchi or wheezing. Heart: Tachycardic with regular rhythm; no gallop, rub audible. Abdomen: Soft, NTTP, ND, hyperactive BS, mild HM Extremities: No cyanosis, clubbing, or edema. Neurological: Patient awake, alert, oriented as noted, cognitive function intact; pupils equally reactive to light and accommodation, cranial nerves II-XII grossly normal, moving all 4 extremities, no focal deficits, strength moderately global decrease secondary to acute presentation, tremulous. Psychiatric: Affect appears fatigued, evidence onset withdrawal, currently emotions controlled but does have history of depression and anxiety and prior was very labile but going through divorce at that time. Results Lab / Micro Data Result Diagrams: 08/26/22 14:20 08/26/22 14:20 Labs: Laboratory Results - last 24 hr 08/26/22 14:20: WBC 12.3 H, RBC 5.03, Hgb 15.9, Hct 46.7, MCV 92.8, MCH 31.6, MCHC 34.0, RDW Std Deviation 43.5, RDW Coeff of Sean 12.8, Plt Count 392, MPV 11.0, Immature Gran % (Auto) 0.200, Neut % (Auto) 63.4, Lymph % (Auto) 24.2, [place] % (Auto) 10.9 H, Eos % (Auto) 0.1, Baso % (Auto) 1.2 H, Absolute Neuts (auto) 7.8 H, Absolute Lymphs (auto) 2.99, Nucleated RBC % 0 08/26/22 14:20: PT 13.5, INR 1.1 08/26/22 14:20: Sodium 142, Potassium 3.7, Chloride 101, Carbon Dioxide 28.0, Anion Gap 13, BUN 10, Creatinine 0.93, Estim Creat Clear Calc 115.39, Est GFR (MDRD) Af Amer 112, Est GFR (MDRD) Non-Af 93, BUN/Creatinine Ratio 10.7, Glucose 97, Calcium 9.4, Total Bilirubin 1.10 H, AST 166 H, ALT 279 H, Alkaline Phosphatase 116, Total Protein 9.1 H, Albumin 4.5, Globulin 4.6 H, Albumin/Globulin Ratio 1.0, Lipase 68 L 08/26/22 14:20: Ethyl Alcohol 431.0 H* Micro: Microbiology 08/26/22 14:25 Nasal Secretion SARS-CoV-2 Antigen (Rapid) - Final Assessment & Plan Assessment/Plan (1) Alcohol withdrawal: PLAN: Plan The patient is a 47 y/o M w/ PMHx: EtOH abuse (1 pint-1L 80 proof vodka daily since ~ 16 years old) most recently underwent detoxification 12/2021 and reports remaining sober x 2 weeks following with resumption heavy EtOH intake following, Chronically elevated LFTs/Chronic EtOH hepatitis, HTN, HLD, Tobacco use, Hx Diabetes mellitus type II (12/14/21 HgbA1c 4.9%) brought in per his father who found him heavily intoxicated, drinking again with last intake just prior to ED presentation but per patient he requested that he be brought in because he fears his demise secondary to continued abuse. #1.? Acute EtOH Withdrawal w/ Chronic EtOH hepatitis/Transaminitis: Will admit to [facility], routine labs obtained in the ED upon presentation with noted mild leukocytosis and elevated LFTs which is chronic. Given interest in sobriety, will initiate and continue on protocol with taper course of Phenobarbital, scheduled gabapentin for seizure prophylaxis, as needed Catapres, Bentyl, Vistaril, IV fluids, IV antiemetics, Tylenol as needed for pain. Will consult Case management for assistance for transition to next level of rehabilitation care. Mag, phos pending. Maintain on CIWA protocol concurrently. #2.? Anxiety and Depression: Not on regimen, contributes heavily to his abuse, will benefit from consideration medication and counseling. #3.? Hypertension: Patient with hypertensive history, not on regimen, not markedly compliant prior, BP currently not markedly elevated, will continue to monitor and add oral regimen if appropriate, as needed IV hydralazine in interim. #4.? Hyperlipidemia: Not on regimen, defer to outpatient. #5.? History of Diabetes mellitus type II: Not on any medications, last presentation 12/2021 HgbA1c obtained at that time and 4.9%, will allow broadened diet given acute presentation per his preference. #6.? Tobacco Abuse: Encouraged cessation, inpatient consultation per RT, NR if desired. #7.? Obesity: Weight loss and lifestyle changes encouraged. #8.? DVT prophylaxis: Low risk given presentation, encourage ambulation. Admission Evaluation Time spent evaluating chart, patient history, patient evaluation, care planning and discussion with specialists: 60 minutes. Charges/Coding Visit Charges Inpatient E&M: 23450 Init Hosp L2
--- NOTE | 2022-08-26 17:44 | CM.ED ---
Social Work Consult: Substance abuse Referral source: Self referral This social work manager met with patient in room. Introduced self and social work manager role. Patient agreeable to speak with this social work manager. Patient reports to be seeking medical management for withdrawal symptoms, [facility]. Patient verbally agreeing to [facility] contract. Patient reports substance of choice as alcohol. Telephone call to treatment navigatorMelody. Melody updated on patient admission to [facility]. Sami AGUILAR, APURVA-S
[2022-08-26 17:54] LABS: Magnesium 1.9 mg/dL (1.6-2.6); Phosphorus 3.7 mg/dL (2.5-4.9)
[2022-08-26] MEDS: Ondansetron 8 MG Tablet PO (18:56)
[2022-08-26] MEDS: Phenobarbital 32.4 MG Tablet PO ×2 (18:56→22:13)
[2022-08-26] MEDS: Gabapentin 300 MG Capsule PO (18:56)
[2022-08-26] MEDS: Lactated Ringers 1,000 ML 125 ML IV (18:59)
[2022-08-26] MEDS: 0.9% Saline Lock 10 ML Syringe IV ×2 (18:59→21:07)
[2022-08-26] MEDS: hydrOXYzine PAM 25 MG Capsule 50 MG PO (20:46)
[2022-08-26] MEDS: traZODone 100 MG Tablet PO (20:46)
[2022-08-26] MEDS: Mag Hydrox/Al Hydrox/Simeth 30 ML UDC PO (20:46)
[2022-08-26] MEDS: Dicyclomine 10 MG Capsule 20 MG PO (20:46)
--- NOTE | 2022-08-26 20:58 | NURSING ---
severe tremors, anxiety, and hallucinations ordered. given all PRNs. contacted [facility] and new orders for ativan CIWA reflex order set
[2022-08-26] MEDS: LORazepam 2 MG/ML Syringe IV (21:12)
[2022-08-26 21:26] LABS: Bedside Glucose 107 mg/dL (74-106)
[2022-08-27 03:33] VITALS: BP 124/85; PULSE 92; RESP 18; TEMP 36.6; O2SAT 96
[2022-08-27] MEDS: Phenobarbital 32.4 MG Tablet PO ×6 (03:36→22:06)
[2022-08-27] MEDS: Gabapentin 300 MG Capsule PO ×2 (06:18→15:00)
[2022-08-27] MEDS: Ibuprofen 600 MG Tablet PO ×2 (06:20→15:02)
[2022-08-27 08:24] VITALS: O2SAT 92
[2022-08-27 08:54] VITALS: BP 138/75; PULSE 108; RESP 16; TEMP 35.6; O2SAT 98
[2022-08-27] MEDS: Thiamine Hydrochloride 100 MG Tablet PO (09:06)
[2022-08-27] MEDS: Ondansetron 8 MG Tablet PO ×2 (09:06→17:03)
[2022-08-27] MEDS: Folic Acid 1 MG Tablet PO (09:06)
[2022-08-27] MEDS: hydrOXYzine PAM 25 MG Capsule 50 MG PO ×4 (09:06→22:06)
[2022-08-27] MEDS: Dicyclomine 10 MG Capsule 20 MG PO ×2 (09:06→14:59)
[2022-08-27] MEDS: Multivitamins,Ther W-Minerals Tablet 1 TABLET PO (09:07)
--- NOTE | 2022-08-27 10:47 | PN.HOSP_ITS ---
Subjective Subjective Follow-up for acute alcohol withdrawal syndrome. Objective Data Objective Data Vital Signs: Vital Signs Temp Pulse Resp BP Pulse Ox O2 Del Method 96.0 F L 108 H 16 138/75 H 98 Room Air 08/27/22 08:54 08/27/22 08:54 08/27/22 08:54 08/27/22 08:54 08/27/22 08:54 08/27/22 08:54 Oxygen Delivery Method Room Air Weight: 228 lb Body Mass Index (BMI) 29.2 Intake & Output: Intake and Output for Last 24 Hours 08/25/22 08/26/22 08/27/22 23:59 23:59 23:59 Intake Total 1000 / 1000 1000 / 1000 Balance 1000 / 1000 1000 / 1000 Lab / Micro Data Result Diagrams: 08/26/22 14:20 08/26/22 14:20 Labs: Laboratory Results - last 24 hr 08/26/22 14:20: WBC 12.3 H, RBC 5.03, Hgb 15.9, Hct 46.7, MCV 92.8, MCH 31.6, MCHC 34.0, RDW Std Deviation 43.5, RDW Coeff of Sean 12.8, Plt Count 392, MPV 11.0, Immature Gran % (Auto) 0.200, Neut % (Auto) 63.4, Lymph % (Auto) 24.2, [place] % (Auto) 10.9 H, Eos % (Auto) 0.1, Baso % (Auto) 1.2 H, Absolute Neuts (auto) 7.8 H, Absolute Lymphs (auto) 2.99, Nucleated RBC % 0 08/26/22 14:20: PT 13.5, INR 1.1 08/26/22 14:20: Sodium 142, Potassium 3.7, Chloride 101, Carbon Dioxide 28.0, Anion Gap 13, BUN 10, Creatinine 0.93, Estim Creat Clear Calc 115.39, Est GFR (MDRD) Af Amer 112, Est GFR (MDRD) Non-Af 93, BUN/Creatinine Ratio 10.7, Glucose 97, Calcium 9.4, Total Bilirubin 1.10 H, AST 166 H, ALT 279 H, Alkaline Phosphatase 116, Total Protein 9.1 H, Albumin 4.5, Globulin 4.6 H, Albumin/Globulin Ratio 1.0, Lipase 68 L 08/26/22 14:20: Ethyl Alcohol 431.0 H* 08/26/22 14:20: Phosphorus 3.7, Magnesium 1.9 08/26/22 20:52: POC Glucose 107 H Micro: Microbiology 08/26/22 14:25 Nasal Secretion SARS-CoV-2 Antigen (Rapid) - Final Physical Exam Narrative Seen and examined. General: Awake, in overt alcohol withdrawal syndrome with facial flushing, anxiety, tossing on the bed. HEENT: Atraumatic, PERRLA, EOMI, Normocephalic Oral: Oral mucosa dry. No Gingival or Mucosal Lesions/ Ulcerations Neck: Supple, No JVD, Negative Carotid Bruits Lungs: Air entry diminished in bilateral lung bases. No crepitation/rhonchi Cardiovascular: Regular rate, Regular Rhythm, Normal S1, Normal S2, No murmurs Abdomen: Bowel Sounds Present, Soft, Non Tender, Non-Distended : No renal angle tenderness. No suprapubic tenderness. Extremities: No edema, Capillary Refill Less than 3 Seconds Skin: No rashes, No breakdown Musculoskeletal: No Tenderness to Palpation of Joints, generalized tremors. Mild muscle tenderness. Neurological: Cranial nerves II-XII grossly intact, DTR 2+/4, no acute deficit Psych/Mental Status: Flat affect. Assessment & Plan Assessment/Plan (1) Alcohol withdrawal: PLAN: Plan The patient is a 47 y/o M for acute alcohol withdrawal syndrome #1.? Acute EtOH Withdrawal w/ Chronic EtOH hepatitis/Transaminitis: Patient is being admitted for acute alcohol withdrawal syndrome. CIWA monitoring. Patient on phenobarbital based other adjunctive medication to control the symptoms. Currently patient has facial flushing, tremors, restless and very anxious #2.? Anxiety and Depression: Psychotherapy and counseling. 180 consult. #3.? Hypertension: Patient with hypertensive history, monitor BP. Not on antihypertensive medication at home. #4.? Hyperlipidemia: Need outpatient management. #5.? History of Diabetes mellitus type II: Not on any medications, last presentation 12/2021 HgbA1c obtained at that time and 4.9%, probably due to poor oral/low solute intake from drinking alcohol. #6.? Tobacco Abuse: Encouraged cessation, inpatient consultation per RT, NR if desired. #7.? Obesity: Weight loss and lifestyle changes encouraged. #8.? DVT prophylaxis: Low risk given presentation, encourage ambulation. Charges/Coding Visit Charges Inpatient E&M: 03951 Subs Hosp L2
--- NOTE | 2022-08-27 12:59 | ADDICTION ---
This typewriter mechanic met with PT to conduct ASAM, MSE, AUDIT, DUDIT assessments and to plan for d/c. PT A+Ox4 and participated actively. All assessments completed and placed in PT's chart. PT plans to f/u with follow-up treatment services, however he wanted to discuss it with his family upon d/c. This worker offered resources based on his listed wants and needs. PT did not indicate a need for transportation post d/c from [facility].
[2022-08-27 13:09] VITALS: BP 117/68; PULSE 78; RESP 16; TEMP 36.7; O2SAT 100
[2022-08-27] MEDS: Senna Tablet 2 TABLET PO (15:02)
--- NOTE | 2022-08-27 16:42 | CHAPLAIN ---
Type of Pastoral Visit _x__ Initial Visit ___ Follow-up Visit ___ On-call Visit ___ General Patient Visit ___ Spiritual Assessment ___ Family Conference ___ Bereavement ___ Rapid Response ___ Code Blue ___ Other (describe below) Pastoral Care Referral From _x__ Patient ___ Family _x__ Nurse ___ Physician ___ Field Merchandiser ___ Color Adviser ___ Other (describe below) Sacrament/Intervention _x__ Active listening ___ Anointing ___ Sabianism ___ Bereavement ___ Communion _x__ Estefani exploration ___ _x__ Life review _x__ Prayer ___ Reconciliation ___ Sacrament of Sick _x__ Supportive presence ___ Wedding ___ Other (describe below) Pastoral Comments patient asked RN for this ore fielder to make visit and give support; this became a long visit with patient talking much about his life, situation and circumstances, and history of addiction; pt shows understanding of the severity of his addiction however pt is both uncertain and admittedly hesitant to fully commit to treatments and rehab; pt has tried several recovery programs; pt has been open to estefani and accepts spiritual care support and prayer;
[2022-08-27 17:02] VITALS: BP 139/90; PULSE 86; RESP 18; TEMP 37.2; O2SAT 99
--- NOTE | 2022-08-27 17:05 | CASEMGMT ---
Social Work Consult: Self Pay Referral source: Case find. This licensed master social worker met with patient in room. Introduced self and licensed master social worker role. Patient agreeable to speak with this licensed master social worker. This licensed master social worker broached conversation of self pay status. Patient states to have been told that patient qualifies for [employer]AN three months ago and to have started application but to have not followed up on this. This licensed master social worker communicating to patient that another application will need to be submitted, patient would like to submit application via phone or on-line. This licensed master social worker provided patient with paper form for [employer]EB[employer] as well as handout on how to start application on-line and over the phone. Patient has no further questions. Patient does report to be a but to make too much money for that insurance. This licensed master social worker encouraged patient to look into this option again. Sami AGUILAR, ARNOLDO
[2022-08-27] MEDS: LORazepam 2 MG/ML Syringe IV (17:12)
[2022-08-27] MEDS: 0.9% Saline Lock 10 ML Syringe IV (17:12)
[2022-08-27 17:31] LABS: Bedside Glucose 111 mg/dL (74-106)
[2022-08-27] MEDS: Acetaminophen 325 MG Tablet 650 MG PO (18:49)
[2022-08-27 22:00] VITALS: BP 132/86; PULSE 73; RESP 18; TEMP 36.6; O2SAT 98
[2022-08-27] MEDS: traZODone 100 MG Tablet PO (22:06)
[2022-08-27 22:15] LABS: Bedside Glucose 113 mg/dL (74-106)
[2022-08-28 03:48] VITALS: BP 137/92; PULSE 62; RESP 18; TEMP 36.5; O2SAT 99
[2022-08-28] MEDS: Ibuprofen 600 MG Tablet PO ×3 (03:49→22:10)
[2022-08-28] MEDS: Gabapentin 300 MG Capsule PO ×2 (03:49→20:35)
[2022-08-28] MEDS: Phenobarbital 32.4 MG Tablet PO ×6 (03:50→22:10)
[2022-08-28] MEDS: Thiamine Hydrochloride 100 MG Tablet PO (08:12)
[2022-08-28] MEDS: Folic Acid 1 MG Tablet PO (08:12)
[2022-08-28] MEDS: Multivitamins,Ther W-Minerals Tablet 1 TABLET PO (08:12)
[2022-08-28] MEDS: Senna Tablet 2 TABLET PO ×2 (08:21→20:35)
[2022-08-28] MEDS: Acetaminophen 325 MG Tablet 650 MG PO ×3 (08:21→22:09)
[2022-08-28] MEDS: hydrOXYzine PAM 25 MG Capsule 50 MG PO ×3 (08:22→18:52)
[2022-08-28 08:30] VITALS: BP 140/96; PULSE 61; RESP 16; TEMP 36.3; O2SAT 94
[2022-08-28] MEDS: LORazepam 1 MG Tablet 2 MG PO ×3 (13:22→22:10)
[2022-08-28 14:30] VITALS: BP 138/86; PULSE 64; RESP 16; TEMP 36.6; O2SAT 96
--- NOTE | 2022-08-28 14:54 | PCM.PN.HOSP ---
Subjective Subjective Follow-up for acute alcohol withdrawal syndrome Objective Data Objective Data Vital Signs: Vital Signs Temp Pulse Resp BP Pulse Ox O2 Del Method 97.4 F L 61 16 140/96 H 94 Room Air 08/28/22 08:30 08/28/22 08:30 08/28/22 08:30 08/28/22 08:30 08/28/22 08:30 08/28/22 08:30 Oxygen Delivery Method Room Air Weight: 228 lb Body Mass Index (BMI) 29.2 Intake & Output: Intake and Output for Last 24 Hours 08/26/22 08/27/22 08/28/22 23:59 23:59 23:59 Intake Total 1000 / 1000 1000 / 1000 Balance 1000 / 1000 1000 / 1000 Lab / Micro Data Result Diagrams: 08/26/22 14:20 08/26/22 14:20 Labs: Laboratory Results - last 24 hr 08/27/22 17:09: POC Glucose 111 H 08/27/22 21:51: POC Glucose 113 H Micro: Microbiology 08/26/22 14:25 Nasal Secretion SARS-CoV-2 Antigen (Rapid) - Final Physical Exam Narrative Patient had anxiety attack yesterday. No seizure. Could not sleep well. Denies hallucination but had bad dream. Seen and examined. General: Awake, alert and oriented x3. HEENT: Atraumatic, PERRLA, EOMI, Normocephalic Oral: Oral mucosa moist.. No Gingival or Mucosal Lesions/ Ulcerations Neck: Supple, No JVD, Negative Carotid Bruits Lungs: Air entry diminished in bilateral lung bases. No crepitation/rhonchi Cardiovascular: Regular rate, Regular Rhythm, Normal S1, Normal S2, No murmurs Abdomen: Bowel Sounds Present, Soft, Non Tender, Non-Distended : No renal angle tenderness. No suprapubic tenderness. Extremities: No edema, Capillary Refill Less than 3 Seconds Skin: No rashes, No breakdown Musculoskeletal: No Tenderness to Palpation of Joints, generalized tremors. Mild muscle tenderness. Neurological: Cranial nerves II-XII grossly intact, DTR 2+/4, no acute deficit Psych/Mental Status: More quiet and restaurant than yesterday. Assessment & Plan Assessment/Plan (1) Alcohol withdrawal: PLAN: Plan The patient is a 47 y/o M for acute alcohol withdrawal syndrome #1.? Acute EtOH Withdrawal w/ Chronic EtOH hepatitis/Transaminitis: Patient is being admitted for acute alcohol withdrawal syndrome. CIWA monitoring. Patient on phenobarbital based other adjunctive medication to control the symptoms. Currently patient has facial flushing, tremors, restless and very anxious 08/28: Symptoms of alcohol withdrawal better than yesterday. Has anxiety attack. #2.? Anxiety and Depression: Psychotherapy and counseling. 180 consult. #3.? Hypertension: Patient with hypertensive history, monitor BP. Not on antihypertensive medication at home. #4.? Hyperlipidemia: Need outpatient management. #5.? History of Diabetes mellitus type II: Not on any medications, last presentation 12/2021 HgbA1c obtained at that time and 4.9%, probably due to poor oral/low solute intake from drinking alcohol. #6.? Tobacco Abuse: Encouraged cessation, inpatient consultation per RT, NR if desired. #7.? Obesity: Weight loss and lifestyle changes encouraged. #8.? DVT prophylaxis: Low risk given presentation, encourage ambulation. Charges/Coding Visit Charges Inpatient E&M: 09061 Subs Hosp L2
[2022-08-28 20:30] VITALS: BP 138/91; PULSE 83; RESP 20; TEMP 36.6; O2SAT 99
[2022-08-28] MEDS: Dicyclomine 10 MG Capsule 20 MG PO (20:35)
[2022-08-28] MEDS: traZODone 100 MG Tablet PO (20:35)
[2022-08-28] MEDS: Mag Hydrox/Al Hydrox/Simeth 30 ML UDC PO (22:10)
[2022-08-29] MEDS: Phenobarbital 32.4 MG Tablet PO ×4 (02:49→21:09)
[2022-08-29 02:50] VITALS: BP 129/82; PULSE 55; RESP 18; TEMP 37.1; O2SAT 99
[2022-08-29] MEDS: LORazepam 2 MG/ML Syringe IV ×3 (02:51→23:03)
[2022-08-29] MEDS: 0.9% Saline Lock 10 ML Syringe IV ×2 (02:52→23:03)
[2022-08-29] MEDS: hydrOXYzine PAM 25 MG Capsule 50 MG PO ×4 (02:58→21:09)
[2022-08-29] MEDS: Multivitamins,Ther W-Minerals Tablet 1 TABLET PO (07:52)
[2022-08-29] MEDS: Folic Acid 1 MG Tablet PO (07:52)
[2022-08-29] MEDS: Thiamine Hydrochloride 100 MG Tablet PO (07:52)
[2022-08-29] MEDS: LORazepam 1 MG Tablet 2 MG PO ×3 (07:53→17:32)
[2022-08-29 09:00] VITALS: BP 137/95; PULSE 60; RESP 18; TEMP 36.6; O2SAT 96
--- NOTE | 2022-08-29 10:39 | PCM.PN.HOSP ---
Subjective Subjective Follow-up for acute alcohol withdrawal syndrome. Objective Data Objective Data Vital Signs: Vital Signs Temp Pulse Resp BP Pulse Ox O2 Del Method 97.9 F 60 18 137/95 H 96 Room Air 08/29/22 09:00 08/29/22 09:00 08/29/22 09:00 08/29/22 09:00 08/29/22 09:00 08/29/22 09:00 Oxygen Delivery Method Room Air Weight: 228 lb Body Mass Index (BMI) 29.2 Intake & Output: Intake and Output for Last 24 Hours 08/27/22 08/28/22 08/29/22 23:59 23:59 23:59 Intake Total 1000 / 1000 480 / 480 240 / 240 Balance 1000 / 1000 480 / 480 240 / 240 Lab / Micro Data Result Diagrams: 08/26/22 14:20 08/26/22 14:20 Micro: Microbiology 08/26/22 14:25 Nasal Secretion SARS-CoV-2 Antigen (Rapid) - Final Physical Exam Narrative Patient is still having bad dreams, anxiety attack. Has generalized coarse tremors. No seizure. Denies hallucination but had bad dream. Seen and examined. General: Awake, alert and oriented x3. HEENT: Atraumatic, PERRLA, EOMI, Normocephalic Oral: Oral mucosa moist.. No Gingival or Mucosal Lesions/ Ulcerations Neck: Supple, No JVD, Negative Carotid Bruits Lungs: Air entry diminished in bilateral lung bases. No crepitation/rhonchi Cardiovascular: Regular rate, Regular Rhythm, Normal S1, Normal S2, No murmurs Abdomen: Bowel Sounds Present, Soft, Non Tender, Non-Distended : No renal angle tenderness. No suprapubic tenderness. Extremities: No edema, Capillary Refill Less than 3 Seconds Skin: No rashes, No breakdown Musculoskeletal: No Tenderness to Palpation of Joints, generalized tremors. Mild muscle tenderness. Neurological: Cranial nerves II-XII grossly intact, DTR 2+/4, no acute deficit Psych/Mental Status: More quiet and restaurant than yesterday. Anxious Assessment & Plan Assessment/Plan (1) Alcohol withdrawal: PLAN: Plan The patient is a 47 y/o M for acute alcohol withdrawal syndrome #1.? Acute EtOH Withdrawal w/ Chronic EtOH hepatitis/Transaminitis: Patient is being admitted for acute alcohol withdrawal syndrome. CIWA monitoring. Patient on phenobarbital based other adjunctive medication to control the symptoms. Currently patient has facial flushing, tremors, restless and very anxious 08/28: Symptoms of alcohol withdrawal better than yesterday. Has anxiety attack. 08/29: CIWA score 9. Patient still has anxiety restlessness and nightmares/weird dreams. Continue phenobarbitone I will schedule. Patient not ready for discharge yet #2.? Anxiety and Depression: Psychotherapy and counseling. 180 consult. #3.? Hypertension: Patient with hypertensive history, monitor BP. Not on antihypertensive medication at home. #4.? Hyperlipidemia: Need outpatient management. #5.? History of Diabetes mellitus type II: Not on any medications, last presentation 12/2021 HgbA1c obtained at that time and 4.9%, probably due to poor oral/low solute intake from drinking alcohol. #6.? Tobacco Abuse: Encouraged cessation, inpatient consultation per RT, NR if desired. #7.? Obesity: Weight loss and lifestyle changes encouraged. #8.? DVT prophylaxis: Low risk given presentation, encourage ambulation. Charges/Coding Visit Charges Inpatient E&M: 65474 Subs Hosp L2
[2022-08-29 15:00] VITALS: BP 130/81; PULSE 68; RESP 18; TEMP 36.7; O2SAT 99
[2022-08-29] MEDS: Gabapentin 300 MG Capsule PO (16:27)
[2022-08-29 20:46] VITALS: BP 141/93; PULSE 107; RESP 16; TEMP 36.5; O2SAT 100
[2022-08-29] MEDS: traZODone 100 MG Tablet PO (21:09)
[2022-08-30 03:32] VITALS: BP 133/95; PULSE 68; RESP 16; TEMP 36.1; O2SAT 100
[2022-08-30] MEDS: LORazepam 1 MG Tablet 2 MG PO ×3 (03:38→20:38)
[2022-08-30] MEDS: Phenobarbital 32.4 MG Tablet PO ×4 (03:38→20:38)
[2022-08-30] MEDS: Folic Acid 1 MG Tablet PO (08:21)
[2022-08-30] MEDS: Thiamine Hydrochloride 100 MG Tablet PO (08:21)
[2022-08-30] MEDS: Multivitamins,Ther W-Minerals Tablet 1 TABLET PO (08:21)
[2022-08-30] MEDS: Acetaminophen 325 MG Tablet 650 MG PO ×2 (08:26→20:38)
[2022-08-30] MEDS: Gabapentin 300 MG Capsule PO (08:26)
--- NOTE | 2022-08-30 11:06 | PN.HOSP_ITS ---
Subjective Subjective Still going through some withdrawal symptoms this morning his CIWA was 15 Objective Data Objective Data Vital Signs: Vital Signs Temp Pulse Resp BP Pulse Ox O2 Del Method 97 F L 68 16 133/95 H 100 Room Air 08/30/22 03:32 08/30/22 03:32 08/30/22 03:32 08/30/22 03:32 08/30/22 03:32 08/30/22 08:20 Oxygen Delivery Method Room Air Weight: 228 lb Body Mass Index (BMI) 29.2 Intake & Output: Intake and Output for Last 24 Hours 08/29/22 08/30/22 08/31/22 03:59 03:59 03:59 Intake Total 480 / 480 640 / 640 Balance 480 / 480 640 / 640 Lab / Micro Data Result Diagrams: 08/26/22 14:20 08/26/22 14:20 Micro: Microbiology 08/26/22 14:25 Nasal Secretion SARS-CoV-2 Antigen (Rapid) - Final Physical Exam Narrative General: Alert, Oriented x3, Cooperative, No apparent distress, sleepy HEENT: Atraumatic, PERRLA, EOMI, Normocephalic Oral: Moist Mucosa Neck: Supple, No JVD Lungs: Clear to auscultation, Normal air movement, No rhonchi, No wheeze, No ral es Cardiovascular: Regular rate, Regular Rhythm, Normal S1, Normal S2, No murmurs Abdomen: Soft, Non Tender, Non-Distended, No Hepato-splenomegaly Extremities: No edema, Capillary Refill Less than 3 Seconds Skin: No rashes, No breakdown Musculoskeletal: No Tenderness to Palpation of Joints or Extremities Neurological: Cranial nerves II-XII grossly intact, Motor Exam 5/5 strength throughout, Sensory exam intact to light touch and pain Psych/Mental Status: Anxious Assessment & Plan Assessment/Plan (1) Alcohol withdrawal: PLAN: Plan The patient is a 47 y/o M for acute alcohol withdrawal syndrome #1.? Acute EtOH Withdrawal w/ Chronic EtOH hepatitis/Transaminitis/tobacco abuse/anxiety/depression: Patient is being admitted for acute alcohol withdrawal syndrome. CIWA monitoring. Patient on phenobarbital based other adjunctive medication to control the symptoms. Currently patient has facial flushing, tremors, restless and very anxious. Discussed tobacco cessation and continue with nicotine patch 08/28: Symptoms of alcohol withdrawal better than yesterday. Has anxiety attack. 08/29: CIWA score 9. Patient still has anxiety restlessness and nightmares/weird dreams. Continue phenobarbitone I will schedule. Patient not ready for discharge yet 08/30: Continue with phenobarb for today, will evaluate him for starting on antidepressant #2.? Hypertension: Patient with hypertensive history, monitor BP. Not on antihypertensive medication at home. #3.? Hyperlipidemia: Need outpatient management. #4.? History of Diabetes mellitus type II: Not on any medications, last presentation 12/2021 HgbA1c obtained at that time and 4.9%, probably due to poor oral/low solute intake from drinking alcohol. #5.? Obesity: Weight loss and lifestyle changes encouraged. DVT: Ambulation Charges/Coding Visit Charges Inpatient E&M: 31772 Subs Hosp L2
[2022-08-30 11:17] VITALS: BP 124/76; PULSE 76; RESP 18; TEMP 36.4; O2SAT 98
[2022-08-30] MEDS: Sertraline 50 MG Tablet PO (13:09)
[2022-08-30 13:13] VITALS: BP 134/76; PULSE 74; RESP 18; TEMP 36.6; O2SAT 95
--- NOTE | 2022-08-30 14:32 | NURSING ---
left message for winston martinez [phone] (family friend) who was going to pick patient up today at 5pm that pt is staying another night and won't be discharged this evening.
[2022-08-30] MEDS: hydrOXYzine PAM 25 MG Capsule 50 MG PO ×2 (15:11→22:27)
--- NOTE | 2022-08-30 15:11 | NURSING ---
Family friend Jai Garcia called back and he is aware that pt wont be discharged today. He will call in Tuesday before coming to hospital to see if pt is discharged.
--- NOTE | 2022-08-30 15:29 | CASEMGMT ---
Social Work Pt requesting to see SW. KATHY met with pt. Pt inquiring about financial help and if he would qualify for disability. SW explained that pt does not have a qualifying diagnosis for disability. Medicaid application and instruction sheet for applying for medicaid sitting on bedside table. SW encouraged pt to complete application for financial assistance. Pt expressing understanding. CARRIE Jack
--- NOTE | 2022-08-30 16:31 | CHAPLAIN ---
Type of Pastoral Visit ___ Initial Visit _x__ Follow-up Visit ___ On-call Visit ___ General Patient Visit ___ Spiritual Assessment ___ Family Conference ___ Bereavement ___ Rapid Response ___ Code Blue ___ Other (describe below) Pastoral Care Referral From _x__ Patient ___ Family ___ Nurse ___ Physician ___ Forestry Support Specialist ___ Systems Requirements Planner ___ Other (describe below) Sacrament/Intervention _x__ Active listening ___ Anointing ___ Confucianism ___ Bereavement ___ Communion _x__ Estefani exploration ___ _x__ Life review _x__ Prayer ___ Reconciliation ___ Sacrament of Sick _x__ Supportive presence ___ Wedding ___ Other (describe below) Pastoral Comments follow up with patient as requested; pt speaks of having a difficult night with hallucinations and anxiety; pt states that he will need to stay an additional night; pt is slow in speech but is quite talkative about his condition, his early life, his anger, his estefani, and his hopes to beat his addiction; lots of time given to listen, support, and affirm patient for healthy living; pt is uncertain about his follow up; pt welcomed presence and prayer; pt also prayed for himself
[2022-08-30 20:34] VITALS: BP 129/75; PULSE 74; RESP 18; TEMP 36.6; O2SAT 95
[2022-08-30] MEDS: traZODone 100 MG Tablet PO (22:21)
[2022-08-31 03:00] VITALS: BP 125/73; PULSE 66; RESP 18; TEMP 36.6; O2SAT 95
[2022-08-31 04:32] LABS: ALB/GLOB Ratio 0.8 RATIO (0.9-2.4); AST(SGOT) 186 U/L (15-37); Alanine Aminotransfer ALT/SGPT 275 U/L (16-61); Albumin, Serum 3.3 g/dL (3.2-5.0); Alkaline Phosphatase 84 U/L (45-117); Anion Gap 8 (5-15); BUN 13 mg/dL (7-18); BUN/Creat Ratio 18.7 RATIO (10-20); Calcium,Total 8.9 mg/dL (8.5-10.1); Chloride 105 mmol/L (98-107); EST Glomerular Filtration Rate 130 mL/min (>60); Est Glom Filt Rate - Afr Amer 157 mL/min (>60); Estimated Creatinine Clearance 153.31 ml/min; Globulin 4.2 g/dL (2.2-4.2); Glucose 84 mg/dL (74-106); Protein, Total 7.5 g/dL (6.4-8.2); Sodium Level 139 mmol/L (136-145)
[2022-08-31 07:40] VITALS: O2SAT 95
[2022-08-31 08:00] VITALS: BP 123/67; PULSE 68; RESP 18; TEMP 36.4; O2SAT 97
[2022-08-31] MEDS: Folic Acid 1 MG Tablet PO (09:39)
[2022-08-31] MEDS: Sertraline 50 MG Tablet PO (09:39)
[2022-08-31] MEDS: Multivitamins,Ther W-Minerals Tablet 1 TABLET PO (09:39)
[2022-08-31] MEDS: Thiamine Hydrochloride 100 MG Tablet PO (09:39)
[2022-08-31] MEDS: hydrOXYzine PAM 25 MG Capsule 50 MG PO (10:16)
[2022-08-31] MEDS: Acetaminophen 325 MG Tablet 650 MG PO (10:16)
--- NOTE | 2022-08-31 10:33 | DCINST_ITS ---
Discharge Instructions Diet Discharge Diet: No restrictions Activity Discharge Activity: Return to Normal Activity Dressing / Incision Call your doctor if you observe: Fever of 101 or Higher, Shortness of breath, Dizziness, Fainting spells, Swelling in the ankles, Chest pain and Increased palpitations (irregular heartbeat) Follow Up Care Test Results: Test results from this visit will be discussed in further detail at your follow- up appointment, if applicable. Discharge Plan Admission Admit Date/Time: 08/26/22 17:24 Attending Provider: Fabio Witt Primary Care Provider: Care Physician,No Primary Consulting Providers: Gill Campos ; Titus Bonner Discharge Orders/Prescriptions Prescriptions: New sertraline 50 mg Tablet 50 mg PO DAILY Qty: 30 0RF hydroxyzine pamoate 25 mg Capsule 50 mg PO Q4H PRN PRN (Reason: mild anxiety) Qty: 10 0RF Referrals / Follow Up: Care Physician,No Primary [Primary Care Provider] - Disposition Disposition (needs filled in before D/C Order can be placed): Home, Self Care
--- NOTE | 2022-08-31 10:51 | CASEMGMT ---
Social Work As per physician, pt needs a PCP appointment. Pt has no insurance and lives in [place]. KATHY did a search and found a Free Clinic in [place] called [facility], they have several clinics around [place]. SW spoke w/pt, he is okay w/SW getting pt appt. After a few phone calls, SW was able to get pt an appt on , 09/02/22, at 1:20pm, at their office called [facility] at [address] [place] [address]. AKTHY wrote down the information for pt and gave it to him. Pt also asked about applying for Medicaid and disability. KATHY gave pt the telephone number to apply for Medicaid on the phone, and also the number to call for disability--though did reiterate as KATHY had stated yesterday that he may not qualify. KATHY also did let pt know if he would like to complete the Medicaid application while he is here SW can fax it in for him. Otherwise, no further needs anticipated, pt home later today. ARNOLDO Young
--- NOTE | 2022-08-31 11:33 | NURSING ---
Spoke to pt friend Jai Garcia who confirms he can pickup pt at 12:30. Primary Rn aware.
[2022-08-31 12:35] VITALS: BP 138/82; PULSE 86; RESP 18; TEMP 37; O2SAT 98
--- NOTE | 2022-08-31 12:47 | DS.PCM_ITS ---
Providers Date of Admission: 08/26/22 Primary Care Physician: No Primary Care Phys Reason For Visit: EtOH ABUSE/DETOX Diagnosis Discharge Diagnosis (1) Alcohol withdrawal: Status: Acute Code(s): F10.939 - Alcohol use, unspecified with withdrawal, unspecified Plan The patient is a 47 y/o M for acute alcohol withdrawal syndrome #1.? Acute EtOH Withdrawal w/ Chronic EtOH hepatitis/Transaminitis/tobacco abuse/anxiety/depression: Patient is being admitted for acute alcohol withdrawal syndrome. CIWA monitoring. Patient on phenobarbital based other adjunctive medication to control the symptoms. Currently patient has facial flushing, tremors, restless and very anxious. Discussed tobacco cessation and continue with nicotine patch 08/28: Symptoms of alcohol withdrawal better than yesterday. Has anxiety attack. 08/29: CIWA score 9. Patient still has anxiety restlessness and nightmares/weird dreams. Continue phenobarbitone I will schedule. Patient not ready for discharge yet 08/30: Continue with phenobarb for today, will evaluate him for starting on antidepressant #2.? Hypertension: Patient with hypertensive history, monitor BP. Not on antihypertensive medication at home. #3.? Hyperlipidemia: Need outpatient management. #4.? History of Diabetes mellitus type II: Not on any medications, last presentation 12/2021 HgbA1c obtained at that time and 4.9%, probably due to poor oral/low solute intake from drinking alcohol. #5.? Obesity: Weight loss and lifestyle changes encouraged. DVT: Ambulation Medications at Discharge Home Medications hydroxyzine pamoate 25 mg capsule 50 mg PO Q4H PRN PRN mild anxiety #10 caps 08/31/22 sertraline 50 mg tablet 50 mg PO DAILY #30 tabs 08/31/22 Hospital Course Operations None Procedures None Summary of Care Provided Minutes Spent on Discharge: 32 Hospital Course: Per HPI: The patient is a 47 y/o M w/ PMHx: EtOH abuse (1 pint-1L 80 proof vodka daily since ~ 16 years old) most recently underwent detoxification 12/2021 and reports remaining sober x 2 weeks following with resumption heavy EtOH intake following, Chronically elevated LFTs/Chronic EtOH hepatitis, HTN, HLD, Tobacco use, Hx Diabetes mellitus type II (12/14/21 HgbA1c 4.9%) brought in per his father who found him heavily intoxicated, drinking again with last intake just prior to ED presentation but per patient he requested that he be brought in because he fears his demise secondary to continued abuse. Patient interested in attaining sober status still and did complete the treatment the last time he presented. Patient in the ED does report onset of some withdrawal symptoms through his stay as he notes he normally drinks continuously with now onset mild nausea, mild racing heart, anxiousness, mild tremors.? Work-up in the ED included T98.2, he art 117, BP 139/81, respiratory rate 20, #room air, CBC with WC 12.3, hemoglobin 15.9, platelet 392 with left shift, unremarkable coags, CMP with total bilirubin 1.10, AST/LT 166/279, lipase 68, ethyl alcohol level 431, rapid COVID antigen negative.? In the ED patient ministered 1 L normal saline bolus as well as Zofran 4 mg IV x1. Hospital Course: #1.? Acute EtOH Withdrawal w/ Chronic EtOH hepatitis/Transaminitis/tobacco abuse/anxiety/depression: Patient is being admitted for acute alcohol withdrawal syndrome.? CIWA monitoring.? Patient on phenobarbital based other adjunctive medication to control the symptoms.? Currently patient? has facial flushing, tremors, restless and very anxious.? Discussed tobacco cessation and continue with nicotine patch 08/28: Symptoms of alcohol withdrawal better than yesterday.? Has anxiety attack. 08/29: CIWA score 9.? Patient still has anxiety restlessness and nightmares/weird dreams.? Continue phenobarbitone I will schedule.? Patient not ready for discharge yet 08/30: Continue with phenobarb for today, will evaluate him for starting on antidepressant 08/31: He has completed his phenobarb taper and he says that he feels back to baseline, his baseline does appear to be very anxious and restless. I told him that given his alcohol issues I would not be prescribing him Ativan however we will continue with Zoloft 50 mg p.o. daily that can be increased in a couple of weeks as an outpatient, as well as 10 pills of hydroxyzine to try to help him at home, refills are contingent on him following up as an outpatient with his [facility] doctor, he did have an appointment set up on by case management at the [facility]. I discussed with him the plan for discharge today he expressed understanding of the risk benefits of going home and would like to go home today. He wants discussed with family about his next steps for rehab. 2. HTN/HLD Blood pressure at this time does not warrant treatment but I do recommend outpatient follow-up Physical Exam Narrative General: Alert, Oriented x3, Cooperative, No apparent distress, sleepy HEENT: Atraumatic, PERRLA, EOMI, Normocephalic Oral: Moist Mucosa Neck: Supple, No JVD Lungs: Clear to auscultation, Normal air movement, No rhonchi, No wheeze, No rales Cardiovascular: Regular rate, Regular Rhythm, Normal S1, Normal S2, No murmurs Abdomen: Soft, Non Tender, Non-Distended, No Hepato-splenomegaly Extremities: No edema, Capillary Refill Less than 3 Seconds Skin: No rashes, No breakdown Musculoskeletal: No Tenderness to Palpation of Joints or Extremities Neurological: Cranial nerves II-XII grossly intact, Motor Exam 5/5 strength throughout, Sensory exam intact to light touch and pain Psych/Mental Status: Anxious Weight / BMI Weight Weight: 228 lb Body Mass Index (BMI) 29.2 ABG / Lab / Microbiology Data Result Diagrams: 08/26/22 14:20 08/31/22 04:02 Laboratory: Laboratory Results - last 24 hr 08/31/22 04:02: Sodium 139, Potassium 4.0, Chloride 105, Carbon Dioxide 26.0, A nion Gap 8, BUN 13, Creatinine 0.70, Estim Creat Clear Calc 153.31, Est GFR (MDRD) Af Amer 157, Est GFR (MDRD) Non-Af 130, BUN/Creatinine Ratio 18.7, Glucose 84, Calcium 8.9, Total Bilirubin 0.50, AST 186 H, ALT 275 H, Alkaline Phosphatase 84, Total Protein 7.5, Albumin 3.3, Globulin 4.2, Albumin/Globulin Ratio 0.8 L Microbiology: Microbiology 08/26/22 14:25 Nasal Secretion SARS-CoV-2 Antigen (Rapid) - Final D/C Instructions Discharge Diet: No restrictions Call your doctor if you observe: Fever of 101 or Higher, Shortness of breath, Dizziness, Fainting spells, Swelling in the ankles, Chest pain and Increased palpitations (irregular heartbeat) Meaningful Use Info Meaningful Use Diagnoses (Choose all that apply): None applicable Discharge Plan Admission Admit Date/Time: 08/26/22 17:24 Attending Provider: Fabio Witt Primary Care Provider: Care Physician,No Primary Consulting Providers: Gill Campos ; Titus Bonner Discharge Orders/Prescriptions Prescriptions: New sertraline 50 mg Tablet 50 mg PO DAILY Qty: 30 0RF hydroxyzine pamoate 25 mg Capsule 50 mg PO Q4H PRN PRN (Reason: mild anxiety) Qty: 10 0RF Referrals / Follow Up: Care Physician,No Primary [Primary Care Provider] - (Appt at [facility] at [address] [place] [address] on , 09/02/22 at 1:20pm. Number is [phone].) Disposition Disposition (needs filled in before D/C Order can be placed): Home, Self Care Charges/Coding Visit Charges Inpatient E&M: 38531 Disch Hosp >30min
== END 2022-08-31 13:06 | disposition home or self-care (01) | DRG 897 ==
LOC: ED 16:56 → MS2 18:06
PROVIDERS: Internal Medicine; Admitting Provider Family Medicine; Emergency Provider Emergency Medicine; Visit Provider Family Medicine
DX: F10.239 Alcohol dependence with withdrawal, unspecified (principal); E66.9 Obesity, unspecified; K70.10 Alcoholic hepatitis without ascites; E86.0 Dehydration; I10 Essential (primary) hypertension; F17.210 Nicotine dependence, cigarettes, uncomplicated; E78.5 Hyperlipidemia, unspecified; F41.9 Anxiety disorder, unspecified; F32.A Depression, unspecified; Z68.29 Body mass index [BMI] 29.0-29.9, adult; Y90.8 Blood alcohol level of 240 mg/100 ml or more
CPT/HCPCS: 36415; 80053; 82077; 82962; 83690; 83735; 84100; 85025; 85610; 87811; 93005; 99283; J7030; J7120; A4216; J2405

== ENCOUNTER 2022-09-20 13:52 | Inpatient (IN) | payer MEDICAID, SELFPAY ==
[2022-09-20 13:53] VITALS: BP 164/106; PULSE 109; RESP 16; TEMP 36.7; O2SAT 98; BMI 30.8
--- NOTE | 2022-09-20 14:22 | EX.ED.SAOD ---
HPI History of Present Illness Chief Complaint: Substance Abuse Narrative Narrative: 47-year-old male past medical history of alcoholism was brought in by his friend from [place] today because he is intoxicated. He admits that he usually drinks vodka at least a liter daily. He finished his liter of vodka approximately 2 hours ago. He states he is here because of alcohol withdrawal. He does admit that he was recently discharged from the hospital for detox last month in August. He denies any suicidal ideation. While he completed the rehabilitation process, he states that he relapsed a few weeks ago and has been drinking daily. PFSH PFS Medical History Acute alcoholism Alcohol abuse Diabetes mellitus, type 2 HLD (hyperlipidemia) Hypertension Tobacco use Home Medications hydroxyzine pamoate 25 mg capsule 50 mg PO Q4H PRN PRN mild anxiety #10 caps 08/31/22 [Rx Last Taken 1 Week Ago ~09/13/22] sertraline 50 mg tablet 50 mg PO DAILY #30 tabs 08/31/22 [Rx Last Taken 1 Week Ago ~09/13/22] Allergy/AdvReac Type Severity Reaction Status Date / Time No Known Allergies Allergy Verified 08/26/22 14:00 Surgical History No history of previous surgery Social History household members: none Smoking Status: Current every day smoker tobacco type: cigarettes alcohol intake: current alcohol intake frequency: 3 or more drinks per day details: 1 pint-1L 80 proof vodka daily, started age 16. substance use type: does not use ROS ROS ED ROS Narrative Constitutional: No fever, no chills. HEENT: No sore throat. No neck pain. No loss of vision. No rhinorrhea. Cardiovascular: No chest pain. No palpitations. No pedal edema. Respiratory: No cough, no shortness of breath. Abdominal: No abdominal pain. No nausea. No vomiting. Genitourinary: No dysuria. No hematuria. Musculoskeletal: No myalgias. No arthralgias. Neurologic: No headaches. No dizziness. No lightheadedness. Skin: No rash. No change in color. Psychiatric: No depression. No anxiety. Alcohol withdrawal. EXAM Physical Exam Narrative Exam Narrative: Afebrile. Vital signs noted. HEENT: Normocephalic. Atraumatic. PERRL, EOMI. Neck soft and supple. No point tenderness or step off. Cardiovascular: Regular rate and rhythm. No murmurs, rubs, or gallops appreciated. Respiratory: No tachypnea. Lungs clear to auscultation bilaterally. Gastrointestinal: Abdomen soft, nontender, with normoactive bowel sounds. No rebound or guarding. Neurological: Awake. Alert. Appears intoxicated. Nonfocal, nonlateralizing. Ambulatory in ED, but staggering. Skin: No rash. Normal color. No pallor. Musculoskeletal: No pedal edema. Full range of motion extremities. Const Vital Signs: 09/20/22 13:53 Temperature 98.0 F Temperature Source Temporal Pulse Rate 109 H Respiratory Rate 16 Blood Pressure 164/106 H Blood Pressure Mean 125 Pulse Ox 98 Oxygen Delivery Method Room Air MDM MDM MDM Narrative Medical decision making narrative: I reviewed the patient's prior records. He was admitted for acute dehydration on August 26 and released from the hospital after alcohol detoxification on 31 August. Additionally, I reviewed his screening laboratory work. He has normal white count of 6.4, hemoglobin normal at 14.2, platelet count normal at 318. Potassium slightly low at 3.4, anion gap normal at 15. Sodium normal at 144 and chloride normal at 103. He does have elevated liver enzymes consistent with his alcoholism with an AST of 237 and ALT of 349. Ethyl alcohol is elevated at 422. Patient became mildly agitated and at times was hitting himself according to police/[employer]. He was administered Haldol 2 mg intramuscularly. At this point in time, I discussed patient with Dr. Campos for admission to [facility] for detox from alcohol. She states that he is well-known to the service, and he stays and completes his detox and most recently did not sign out AMA. Disposition was admitted in stable condition. Lab Data Attestation: I reviewed the patient's lab results. Labs: Laboratory Results - last 24 hr 09/20/22 09/20/22 09/20/22 14:40 14:40 14:40 WBC 6.4 RBC 4.56 L Hgb 14.2 Hct 42.8 MCV 93.9 MCH 31.1 MCHC 33.2 RDW Std Deviation 45.0 H RDW Coeff of Sean 13.2 Plt Count 318 MPV 10.4 Immature Gran % (Auto) 0.200 Neut % (Auto) 48.8 Lymph % (Auto) 36.5 Callahan % (Auto) 12.0 H Eos % (Auto) 0.5 Baso % (Auto) 2.0 H Absolute Neuts (auto) 3.1 Absolute Lymphs (auto) 2.32 Nucleated RBC % 0 Sodium 144 Potassium 3.4 L Chloride 103 Carbon Dioxide 26.0 Anion Gap 15 BUN 12 Creatinine 0.73 Estim Creat Clear Calc 147.01 Est GFR (MDRD) Af Amer 148 Est GFR (MDRD) Non-Af 122 BUN/Creatinine Ratio 16.3 Glucose 80 Calcium 9.0 Total Bilirubin 0.60 AST 237 H ALT 349 H Alkaline Phosphatase 126 H Total Protein 8.8 H Albumin 4.2 Globulin 4.6 H Albumin/Globulin Ratio 0.9 Ethyl Alcohol 422.0 H* Discharge Plan Dx/Rx/DC Orders Clinical Impression: Desire for detoxification, Acute alcohol intoxication, Agitation Disposition Disposition: Acute Care Hospital [facility]
[2022-09-20 14:51] LABS: Absolute Lymphocyte Count 2.32 X10^3/uL (0.83-4.51); Absolute Neutrophil Count 3.1 X10^3/uL (2.0-7.7); Basophil# 0.13 X10^3/uL; Eosinophil# 0.03 X10^3/uL; Eosinophils% 0.5 % (0-5); Hematocrit 42.8 % (40-54); Hemoglobin 14.2 g/dL (13.0-16.5); Lymphocyte # 2.32 X10^3/ul (0.83-4.51); Lymphocyte % 36.5 % (19-41); Mean Corp Hgb Conc 33.2 g/dL (32-36); Mean Corpuscular Hgb 31.1 pg (27.0-32.0); Mean Corpuscular Volume 93.9 fL (80-94); Mean Platelet Vol. 10.4 fl (6.2-12.0); Monocyte# 0.76 X10^3/uL; NRBC Flagged by Analyzer 0 % (0-5); Neutrophil % 48.8 % (47-70); Platelet Count 318 K/mm3 (150-450); RBC Distribution Width CV 13.2 % (11.6-14.6); Red Blood Count 4.56 M/mm3 (4.6-6.2); White Blood Count 6.4 K/mm3 (4.4-11.0)
[2022-09-20 15:05] LABS: ALB/GLOB Ratio 0.9 RATIO (0.9-2.4); AST(SGOT) 237 U/L (15-37); Alanine Aminotransfer ALT/SGPT 349 U/L (16-61); Albumin, Serum 4.2 g/dL (3.2-5.0); Alkaline Phosphatase 126 U/L (45-117); Anion Gap 15 (5-15); BUN 12 mg/dL (7-18); BUN/Creat Ratio 16.3 RATIO (10-20); Chloride 103 mmol/L (98-107); Creatinine, Serum 0.73 mg/dL (0.70-1.30); EST Glomerular Filtration Rate 122 mL/min (>60); Est Glom Filt Rate - Afr Amer 148 mL/min (>60); Estimated Creatinine Clearance 147.01 ml/min; Globulin 4.6 g/dL (2.2-4.2); Glucose 80 mg/dL (74-106); Potassium 3.4 mmol/L (3.5-5.1); Protein, Total 8.8 g/dL (6.4-8.2); Sodium Level 144 mmol/L (136-145)
[2022-09-20] MEDS: Haloperidol Lactate 5 MG/ML Vial 2 MG IM (15:53)
--- NOTE | 2022-09-20 16:24 | HP.PCM.HOS_ITS ---
HPI - General General Date of Admission: 09/20/22 Date of Service: 09/20/22 Chief Complaint: Intoxicated, dropped at the ED per friend for treatment. HPI Narrative The patient is a 47 y/o M w/ PMHx: Anxiety and Depression, EtOH abuse (1 pint-1L 80 proof vodka daily since ~ 16 years old), Chronically elevated LFTs/Chronic EtOH hepatitis, HTN, HLD, Tobacco use, Hx Diabetes mellitus type II (12/14/21 HgbA1c 4.9%), noted 08/26/22 admission for acute EtOH withdrawal and detoxification treatment with discharge on 08/31/22 who now re-presents to the [facility] ED on 09/20/22 with history of being brought in by [facility] secondary to significant intoxication reportedly finishing a liter of vodka 2 hours prior to initial ED presentation unfortunately completing the rehab process but relapsed approximately 1 to 2 weeks prior to current presentation and has been drinking daily since then. Despite significant intoxicated parents patient reports that he is having alcohol withdrawal symptoms including nausea, emesis, mild tremors but these are not visible upon evaluation. Still appears intoxicated and lethargic. Work-up in the ED included T98, heart rate 109, BP 164/106, respiratory rate 16, 98% on room air, CBC with WBC 6.4, hemoglobin 14.2, platelet 318 without marked shift, CMP with potassium 3.4, AST/ALT 237/349, alk phos 126, bilirubin 0.60, at the alcohol level 422. In the ED patient administered Haldol 2 mg IM x1. [facility] Medical History Acute alcoholism Alcohol abuse Cirrhosis Diabetes Diabetes mellitus, type 2 HLD (hyperlipidemia) Hypertension Migraines Smoker Tobacco use Home Medications hydroxyzine pamoate 25 mg capsule 50 mg PO Q4H PRN PRN mild anxiety #10 caps 08/31/22 [Rx Last Taken 1 Week Ago ~09/13/22] sertraline 50 mg tablet 50 mg PO DAILY #30 tabs 08/31/22 [Rx Last Taken 1 Week Ago ~09/13/22] Allergy/AdvReac Type Severity Reaction Status Date / Time No Known Allergies Allergy Verified 08/26/22 14:00 Surgical History No history of previous surgery Social History household members: none Smoking Status: Current every day smoker tobacco type: cigarettes alcohol intake: current alcohol intake frequency: 3 or more drinks per day details: 1 pint-1L 80 proof vodka daily, started age 16. substance use type: does not use ROS ROS Narrative Admission Review of Systems: CONSTITUTIONAL: No weight loss, fever, chills, + weakness or fatigue. HEENT: Eyes: No visual loss, blurred vision, double vision or yellow sclerae. Ears, Nose, Throat: No hearing loss, sneezing, congestion, runny nose or sore throat. SKIN: No rash or itching, lesions, wounds. CARDIOVASCULAR: No chest pain, chest pressure or chest discomfort, palpitations, edema, orthopnea, syncopal events. RESPIRATORY: No shortness of breath, cough or sputum, wheezing, hemoptysis. GASTROINTESTINAL: + anorexia, nausea, vomiting, No diarrhea, abdominal pain, melena, BRBPR. GENITOURINARY: No dysuria, frequency, urgency or retention. NEUROLOGICAL: + Tremors, No headache, dizziness, syncope, paralysis, ataxia, numbness or tingling in the extremities, focal weakness, change in bowel or blad carol control, seizure. MUSCULOSKELETAL: + muscle, back pain, joint pain or stiffness. HEMATOLOGIC: No anemia, bleeding or bruising. LYMPHATICS: No enlarged nodes. No history of splenectomy. PSYCHIATRIC: + history of depression or anxiety. ENDOCRINOLOGIC: No reports of sweating, cold or heat intolerance. No polyuria or polydipsia. ALLERGIES: No history of asthma, hives, eczema or rhinitis. Vital Signs Vital Signs Vital Signs: 09/20/22 13:53 Temperature 98.0 F Temperature Source Temporal Pulse Rate 109 H Respiratory Rate 16 Blood Pressure 164/106 H Blood Pressure Mean 125 Pulse Ox 98 Oxygen Delivery Method Room Air Weight Weight: 240 lb Body Mass Index (BMI) 30.8 Physical Exam Narrative Physical Examination: General: Awake, alert, oriented x 3 and cooperative, seated upright in the ED be d, reports nauseated and did have bouts of emesis, states he is having tremors but appears still notably intoxicated. Skin: Normal color, normal turgor, no icterus, no cyanosis. HEENT: AT/NC, EOMI, PERRLA, dry MM, no carotid bruits or JVD noted, EtOH on his breath. Lungs: Mild diminished, greater bases, appropriate effort no rales, ronchi or wheezing. Heart: Tachycardic with regular rhythm; no gallop, rub audible. Abdomen: Soft, NTTP, ND, hyperactive BS, mild HM Extremities: No cyanosis, clubbing, or edema. Neurological: Patient awake, alert, oriented as noted, cognitive function intact although sluggish secondary to intoxication; pupils equally reactive to light and accommodation, cranial nerves II-XII grossly normal, moving all 4 extremities, no focal deficits, strength moderately global decrease secondary to acute presentation, no evidence of any current tremors. Psychiatric: Affect appears fatigued, no obvious evidence of anxiety and depression feelings but does have underlying history. Results Lab / Micro Data Result Diagrams: 09/20/22 14:40 09/20/22 14:40 Labs: Laboratory Results - last 24 hr 09/20/22 14:40: WBC 6.4, RBC 4.56 L, Hgb 14.2, Hct 42.8, MCV 93.9, MCH 31.1, MCHC 33.2, RDW Std Deviation 45.0 H, RDW Coeff of Sean 13.2, Plt Count 318, MPV 10.4, Immature Gran % (Auto) 0.200, Neut % (Auto) 48.8, Lymph % (Auto) 36.5, [place] % (Auto) 12.0 H, Eos % (Auto) 0.5, Baso % (Auto) 2.0 H, Absolute Neuts (auto) 3.1, Absolute Lymphs (auto) 2.32, Nucleated RBC % 0 09/20/22 14:40: Sodium 144, Potassium 3.4 L, Chloride 103, Carbon Dioxide 26.0, Anion Gap 15, BUN 12, Creatinine 0.73, Estim Creat Clear Calc 147.01, Est GFR (MDRD) Af Amer 148, Est GFR (MDRD) Non-Af 122, BUN/Creatinine Ratio 16.3, Glucose 80, Calcium 9.0, Total Bilirubin 0.60, AST 237 H, ALT 349 H, Alkaline Phosphatase 126 H, Total Protein 8.8 H, Albumin 4.2, Globulin 4.6 H, Albumin/Globulin Ratio 0.9 09/20/22 14:40: Ethyl Alcohol 422.0 H* Assessment & Plan Assessment/Plan (1) Alcohol abuse: PLAN: Plan The patient is a 47 y/o M w/ PMHx: Anxiety and Depression, EtOH abuse (1 pint-1L 80 proof vodka daily since ~ 16 years old), Chronically elevated LFTs/Chronic EtOH hepatitis, HTN, HLD, Tobacco use, Hx Diabetes mellitus type II (12/14/21 HgbA1c 4.9%), noted 08/26/22 admission for acute EtOH withdrawal and d etoxification treatment with discharge on 08/31/22 who now re-presents to the [facility] ED on 09/20/22 with history of being brought in by his friend at [facility] secondary to significant intoxication reportedly finishing a liter of vodka 2 hours prior to initial ED presentation unfortunately completing the rehab process but relapsed approximately 1 to 2 weeks prior to current presentation and has been drinking daily since then but reporting he would like to undergo treatment again. #1. Acute EtOH Abuse with Detoxification request with Impending withdrawal with Chronic EtOH hepatitis/Transaminitis: Will admit to [facility], routine labs obtained in the ED upon presentation with noted mild hypokalemia and elevated LFTs which has been chronic for this patient. Given interest in sobriety, will initiate and con tinue on protocol with taper course of Phenobarbital, scheduled gabapentin for seizure prophylaxis, as needed Catapres, Bentyl, Vistaril, IV fluids, IV antiemetics, Tylenol as needed for pain. Will consult Case management for assistance for transition to next level of rehabilitation care. Mag, phos pending. Maintain on CIWA protocol concurrently. #2. Hypokalemia: Admission K+ 3.4, magnesium level requested, supplementation given, repeat level in AM. #3. Anxiety and Depression: We will continue patient home sertraline and hydroxyzine home regimen, encourage continued outpatient counseling and evaluation. May need upward titration of his medications. #4. Hypertension: Patient with history, not on medication, BP currently elevated above goal, potentially related with acute presentation, will continue to monitor and add oral regimen if appropriate, in the interim we will maintain on as needed IV hydralazine. #5. Hyperlipidemia: Not on regimen, defer to outpatient. #6. History of Diabetes mellitus type II: Not on any medications, last presentation 12/2021 HgbA1c obtained at that time and 4.9%, will allow broadened diet given acute presentation per patient preference. #7. Tobacco Abuse: Encouraged cessation, inpatient consultation per RT, NR if desired. #8. Obesity: Weight loss and lifestyle changes encouraged. #9. DVT prophylaxis: Low risk, encourage ambulation. Admission Evaluation Time spent evaluating chart, patient history, patient evaluation, care planning and discussion with specialists: 55 minutes. Charges/Coding Visit Charges Inpatient E&M: 40067 Init Hosp L2
[2022-09-20 18:06] VITALS: BP 124/94; PULSE 86; RESP 16; TEMP 36.2; O2SAT 99
[2022-09-20 18:45] VITALS: BP 152/84; PULSE 95; RESP 16; TEMP 36.6; O2SAT 100
[2022-09-20 18:48] VITALS: BMI 28.2
[2022-09-20 19:26] VITALS: BP 142/105; PULSE 110; RESP 20; TEMP 36.8; O2SAT 99
[2022-09-20] MEDS: Dicyclomine 10 MG Capsule 20 MG PO (19:49)
[2022-09-20] MEDS: Gabapentin 300 MG Capsule PO (19:49)
[2022-09-20] MEDS: Phenobarbital 32.4 MG Tablet 64.8 MG PO ×2 (19:49→23:47)
[2022-09-20] MEDS: Potassium Chloride Oral Tablet 20 MEQ 40 MEQ PO (19:53)
[2022-09-20] MEDS: Lactated Ringers 1,000 ML 125 ML IV (19:55)
[2022-09-20] MEDS: hydrOXYzine PAM 25 MG Capsule 50 MG PO (22:10)
[2022-09-20] MEDS: traZODone 100 MG Tablet PO (22:10)
[2022-09-20] MEDS: Acetaminophen 325 MG Tablet 650 MG PO (23:47)
[2022-09-21] VITALS (8 sets, daily range): BP systolic 130–151; BP diastolic 81–92; PULSE 72–95; RESP 16–18; TEMP 36.2–36.9; O2SAT 96–100
[2022-09-21] MEDS: Phenobarbital 32.4 MG Tablet 64.8 MG PO ×6 (03:58→23:09)
[2022-09-21] MEDS: Acetaminophen 325 MG Tablet 650 MG PO ×4 (03:59→20:21)
[2022-09-21] MEDS: hydrOXYzine PAM 25 MG Capsule 50 MG PO ×4 (03:59→20:21)
[2022-09-21] MEDS: Thiamine Hydrochloride 100 MG Tablet PO (08:22)
[2022-09-21] MEDS: Folic Acid 1 MG Tablet PO (08:22)
[2022-09-21] MEDS: Sertraline 50 MG Tablet PO (08:22)
[2022-09-21] MEDS: Gabapentin 300 MG Capsule PO ×2 (08:25→23:09)
[2022-09-21] MEDS: Dicyclomine 10 MG Capsule 20 MG PO ×2 (08:26→20:20)
--- NOTE | 2022-09-21 10:35 | CASEMGMT ---
Social Work Telephone call to addiction therapies, Melody. This social work supervisor updated Melody on patient admission to [facility]. Sami AGUILAR, APURVA-S
--- NOTE | 2022-09-21 11:12 | PN.HOSP_ITS ---
Subjective Subjective Patient seen and examined. He was complaining of tremors in his upper extremities due to withdrawal symptoms. He denied any chest pain, palpitations, dizziness, fever, chills or any other symptoms. Review of systems was otherwise negative. Objective Data Objective Data Vital Signs: Vital Signs Temp Pulse Resp BP Pulse Ox O2 Del Method 98.5 F 90 16 134/92 H 99 Room Air 09/21/22 08:18 09/21/22 08:18 09/21/22 08:18 09/21/22 08:18 09/21/22 08:18 09/21/22 08:18 Oxygen Delivery Method Room Air Weight: 220 lb Body Mass Index (BMI) 28.2 Intake & Output: Intake and Output for Last 24 Hours 09/19/22 09/20/22 09/21/22 23:59 23:59 23:59 Intake Total 1000 / 1000 Output Total 550 / 550 Balance 450 / 450 Lab / Micro Data Result Diagrams: 09/20/22 14:40 09/20/22 14:40 Labs: Laboratory Results - last 24 hr 09/20/22 14:40: WBC 6.4, RBC 4.56 L, Hgb 14.2, Hct 42.8, MCV 93.9, MCH 31.1, MC HC 33.2, RDW Std Deviation 45.0 H, RDW Coeff of Sean 13.2, Plt Count 318, MPV 10.4, Immature Gran % (Auto) 0.200, Neut % (Auto) 48.8, Lymph % (Auto) 36.5, [place] % (Auto) 12.0 H, Eos % (Auto) 0.5, Baso % (Auto) 2.0 H, Absolute Neuts ( auto) 3.1, Absolute Lymphs (auto) 2.32, Nucleated RBC % 0 09/20/22 14:40: Sodium 144, Potassium 3.4 L, Chloride 103, Carbon Dioxide 26.0, Anion Gap 15, BUN 12, Creatinine 0.73, Estim Creat Clear Calc 147.01, Est GFR (MDRD) Af Amer 148, Est GFR (MDRD) Non-Af 122, BUN/Creatinine Ratio 16.3, Glucose 80, Calcium 9.0, Total Bilirubin 0.60, AST 237 H, ALT 349 H, Alkaline Phosphatase 126 H, Total Protein 8.8 H, Albumin 4.2, Globulin 4.6 H, Al bumin/Globulin Ratio 0.9 09/20/22 14:40: Ethyl Alcohol 422.0 H* 09/20/22 14:40: Phosphorus 3.0, Magnesium 2.0 Physical Exam Const alert and oriented x3 Constitutional Narrative: appears anxious HEENT head/scalp atraumatic, moist oral mucous membranes and oropharynx normal Head and Scalp: normocephalic Mouth: oral and palatal mucosa normal Eyes PERRL, EOMs intact bilaterally and conjunctivae normal Neck no lymphadenopathy and supple Resp normal respiratory effort, no retractions, no use of accessory muscles and clear to auscultation bilaterally Cardio regular rate, regular rhythm, S1 normal heart sound, S2 normal heart sound and no murmurs GI normal to inspection, nondistended, normoactive bowel sounds, soft to palpation, non-tender and non-distended Extremity normal to inspection, full ROM and no clubbing, cyanosis or edema General Extremity: edema Neuro oriented x3, CN's II-XII intact bilaterally, moves all extremities and no focal motor deficits Sensorium / Orientation: awake and alert Motor Exam: strength 5/5 throughout Psych affect normal Assessment & Plan Assessment/Plan (1) Alcohol abuse: (2) Alcohol withdrawal: PLAN: Plan #Acute alcohol withdrawal * On alcohol withdrawal protocol with phenobarbital. * On thiamine, folic acid and Multivite. * Adjunctive meds for symptomatic relief * Monitor CIWA score. * #Elevated liver enzymes: This is chronic. Due to chronic alcohol abuse. Will monitor. #Depression: On sertraline DVT prophylaxis: Low risk. Encouraged to ambulate. Charges/Coding Visit Charges Inpatient E&M: 01119 Subs Hosp L2 Reason for Visit Reason for Visit: Diagnoses Alcohol abuse, uncomplicated (09/20/22)
[2022-09-21] MEDS: LORazepam 2 MG/ML Syringe IV ×4 (11:45→21:41)
--- NOTE | 2022-09-21 13:21 | NURSING ---
RECEIVED CALL FROM FAMILY FRIEND OF PT, DR PARTIDA, . DR PARTIDA STATES HE HAS A PLAN FOR THE PT TO GO TO [facility] BY TUESDAY. DR PARTIDA WOULD BE ABLE TO PROVIDE TRANSPORTATION TO TAKE PT TO [facility] FOR 30DAYS OF TREATMENT. OSVALDO SHRESTHA RN NOTIFIED AND WILL INFORM 180 COUNSELOR TO SPEAK TO DR PARTIDA.
[2022-09-21] MEDS: 0.9% Saline Lock 10 ML Syringe IV ×2 (15:17→18:37)
[2022-09-21] MEDS: Ondansetron 8 MG Tablet PO (15:17)
[2022-09-21 15:45] LABS: Bedside Glucose 122 mg/dL (74-106)
--- NOTE | 2022-09-21 16:00 | CHAPLAIN ---
Type of Pastoral Visit _x__ Initial Visit ___ Follow-up Visit ___ On-call Visit ___ General Patient Visit ___ Spiritual Assessment ___ Family Conference ___ Bereavement ___ Rapid Response ___ Code Blue ___ Other (describe below) Pastoral Care Referral From _x__ Patient ___ Family ___ Nurse ___ Physician ___ Debt And Budget Counselor ___ Want Ad Receiver ___ Other (describe below) Sacrament/Intervention _x__ Active listening ___ Anointing ___ Cheondoism ___ Bereavement ___ Communion ___ Estefani exploration ___ _x__ Life review _x__ Prayer ___ Reconciliation ___ Sacrament of Sick _x__ Supportive presence ___ Wedding ___ Other (describe below) Pastoral Comments patient returned after a recent detox admission; pt gives recent life review, his list of struggles, and his acknowledgement of failure at addiction; pt is always talkative and open but also resistant to getting to the source of his issues even though he acknowledges that there are sources; pt has someone arranging for a 30 day program that he plans to attend; pt speaks of getting his help from [facility] but again apparently does not pursue this for himself; pt welcomes presence and prayer of this farm implement mechanic; future visits are asked
[2022-09-21] MEDS: Senna Tablet 2 TABLET PO (16:17)
--- NOTE | 2022-09-21 17:59 | ADDICTION ---
TW met with pt to complete ASAM, AUDIT, DUDIT, MSE, LIZETH, and D/C plan. Pt was alert and oriented, cooperative, and answered all questions asked. Pt has family friend involvement in setting up of aftercare. TW had pt fill out LIZETH for Dr. Jai Garcia DDS and called Dr. Garcia together with pt. Dr. Garcia explained that he already set up an appt at [facility] for client at 12PM on 09/23/22 with direct admission to residential treatment following that. Dr. Garcia is requesting that pt be released by 10am on 09/23/22 in order to get to [place] on time. He will provide transportation. Pt was agreeable to this plan. TW let nurse know and placed d/c plan and LIZETH in chart.
[2022-09-21] MEDS: traZODone 100 MG Tablet PO (20:21)
[2022-09-21 20:46] LABS: Bedside Glucose 107 mg/dL (74-106)
[2022-09-22] VITALS (8 sets, daily range): BP systolic 132–156; BP diastolic 84–103; PULSE 76–115; RESP 16–18; TEMP 36.2–36.8; O2SAT 96–99
[2022-09-22] MEDS: hydrOXYzine PAM 25 MG Capsule 50 MG PO ×5 (03:01→23:04)
[2022-09-22] MEDS: Phenobarbital 32.4 MG Tablet 64.8 MG PO ×6 (03:01→23:04)
[2022-09-22] MEDS: Folic Acid 1 MG Tablet PO (08:07)
[2022-09-22] MEDS: Sertraline 50 MG Tablet PO (08:07)
[2022-09-22] MEDS: Acetaminophen 325 MG Tablet 650 MG PO ×3 (08:08→20:19)
[2022-09-22] MEDS: Thiamine Hydrochloride 100 MG Tablet PO (08:08)
[2022-09-22] MEDS: LORazepam 1 MG Tablet 2 MG PO ×4 (08:12→21:32)
--- NOTE | 2022-09-22 12:15 | PN.HOSP_ITS ---
Reason for Visit Reason for Visit: Diagnoses Alcohol abuse, uncomplicated (09/20/22) Alcohol use, unspecified with withdrawal, unspecified (09/20/22) Subjective Subjective Patient seen and examined. He still complained of some tremors and withdrawal symptoms. He wants to know if he will be given scripts for ativan and vistaril when he is discharged to inpatient facility for alcohol rehab tomorrow. Patient advised that this is not usually done. Review of systems otherwise negative. Objective Data Objective Data Vital Signs: Vital Signs Temp Pulse Resp BP Pulse Ox O2 Del Method 97.3 F L 115 H 16 148/103 H 99 Room Air 09/22/22 11:17 09/22/22 11:17 09/22/22 11:17 09/22/22 11:17 09/22/22 11:17 09/22/22 11:17 Oxygen Delivery Method Room Air Weight: 213 lb 10.047 oz Body Mass Index (BMI) 28.2 Intake & Output: Intake and Output for Last 24 Hours 09/20/22 09/21/22 09/22/22 23:59 23:59 23:59 Intake Total 1300 / 1900 1700 / 1700 Output Total 1250 / 1250 Balance 50 / 650 1700 / 1700 Lab / Micro Data Result Diagrams: 09/20/22 14:40 09/20/22 14:40 Labs: Laboratory Results - last 24 hr 09/21/22 15:21: POC Glucose 122 H 09/21/22 20:24: POC Glucose 107 H Physical Exam Const alert and oriented x3 Constitutional Narrative: appears anxious HEENT head/scalp atraumatic, moist oral mucous membranes and oropharynx normal Head and Scalp: normocephalic Mouth: oral and palatal mucosa normal Eyes PERRL, EOMs intact bilaterally and conjunctivae normal Neck no lymphadenopathy and supple Resp normal respiratory effort, no retractions, no use of accessory muscles and clear to auscultation bilaterally Cardio regular rate, regular rhythm, S1 normal heart sound, S2 normal heart sound and no murmurs GI normal to inspection, nondistended, normoactive bowel sounds, soft to palpation, non-tender and non-distended Extremity normal to inspection, full ROM and no clubbing, cyanosis or edema General Extremity: edema Neuro oriented x3, CN's II-XII intact bilaterally, moves all extremities and no focal motor deficits Sensorium / Orientation: awake and alert Motor Exam: strength 5/5 throughout Psych affect normal Assessment & Plan Assessment/Plan (1) Alcohol abuse: (2) Alcohol withdrawal: PLAN: Plan #Acute alcohol withdrawal * On alcohol withdrawal protocol with phenobarbital. * On thiamine, folic acid and Multivite. * Adjunctive meds for symptomatic relief * Monitor CIWA score. * #Elevated liver enzymes: This is chronic. Due to chronic alcohol abuse. Will monitor. #Depression: On sertraline DVT prophylaxis: Low risk. Encouraged to ambulate. Disposition: dc tomorrow to inpatient rehab facillity. Charges/Coding Visit Charges Inpatient E&M: 88047 Subs Hosp L2
[2022-09-22] MEDS: Gabapentin 300 MG Capsule PO ×2 (13:18→23:04)
--- NOTE | 2022-09-22 17:02 | CHAPLAIN ---
Type of Pastoral Visit ___ Initial Visit ___ Follow-up Visit ___ On-call Visit ___ General Patient Visit ___ Spiritual Assessment ___ Family Conference ___ Bereavement ___ Rapid Response ___ Code Blue ___ Other (describe below) Pastoral Care Referral From _x__ Patient ___ Family ___ Nurse ___ Physician ___ Hospice Physician ___ [employer] ___ Other (describe below) Sacrament/Intervention _x__ Active listening ___ Anointing ___ Gnosticism ___ Bereavement ___ Communion ___ Estefani exploration ___ _x__ Life review _x__ Prayer ___ Reconciliation ___ Sacrament of Sick _x__ Supportive presence ___ Wedding ___ Other (describe below) Pastoral Comments
[2022-09-22] MEDS: Dicyclomine 10 MG Capsule 20 MG PO (20:18)
[2022-09-22] MEDS: Ondansetron 8 MG Tablet PO (20:19)
[2022-09-22] MEDS: traZODone 100 MG Tablet PO (20:19)
[2022-09-23 02:04] VITALS: BP 135/87; PULSE 76; RESP 18; TEMP 36.8; O2SAT 96
[2022-09-23] MEDS: LORazepam 1 MG Tablet 2 MG PO (02:13)
[2022-09-23] MEDS: Acetaminophen 325 MG Tablet 650 MG PO (02:13)
[2022-09-23] MEDS: Senna Tablet 2 TABLET PO (02:14)
[2022-09-23 04:06] VITALS: BP 129/81; PULSE 69; RESP 16; TEMP 36.7; O2SAT 96
[2022-09-23 04:06] LABS: Bedside Glucose 82 mg/dL (74-106)
[2022-09-23] MEDS: Phenobarbital 32.4 MG Tablet 64.8 MG PO ×2 (04:07→09:18)
[2022-09-23 07:20] VITALS: O2SAT 95
[2022-09-23 08:36] VITALS: BP 159/94; PULSE 87; RESP 16; TEMP 36.6; O2SAT 100
[2022-09-23] MEDS: Folic Acid 1 MG Tablet PO (08:45)
[2022-09-23] MEDS: Thiamine Hydrochloride 100 MG Tablet PO (08:45)
[2022-09-23] MEDS: hydrOXYzine PAM 25 MG Capsule 50 MG PO (08:49)
[2022-09-23] MEDS: Sertraline 50 MG Tablet PO (09:17)
--- NOTE | 2022-09-23 09:24 | DCINST_ITS ---
Discharge Instructions Diet Discharge Diet: Low fat / Low cholesterol Activity Discharge Activity: Return to Normal Activity Dressing / Incision Call your doctor if you observe: Fever of 101 or Higher, Shortness of breath, Dizziness, Swelling in the ankles and Chest pain Follow Up Care Test Results: Test results from this visit will be discussed in further detail at your follow- up appointment, if applicable. Discharge Plan Admission Admit Date/Time: 09/20/22 16:26 Primary Reason for Your Visit: acute alcohol withdrawal Attending Provider: Beverley Conteh Primary Care Provider: Care Physician,No Primary Consulting Providers: Gill Campos Instructions Patient Instructions: Alcohol Addiction, Alcohol Withdrawal: What to Expect Discharge Orders/Prescriptions Prescriptions: Continued sertraline 50 mg Tablet 50 mg PO DAILY Qty: 30 0RF hydroxyzine pamoate 25 mg Capsule 50 mg PO Q4H PRN PRN (Reason: mild anxiety) Qty: 10 0RF Referrals / Follow Up: Care Physician,No Primary [Primary Care Provider] - Disposition Disposition (needs filled in before D/C Order can be placed): Home, Self Care
--- NOTE | 2022-09-23 09:25 | DS.PCM_ITS ---
Providers Date of Admission: 09/20/22 Date of Discharge: 09/23/22 Primary Care Physician: No Primary Care Phys Reason For Visit: ALCOHOL DETOXIFICATION PROGRAM Diagnosis Discharge Diagnosis (1) Alcohol abuse: Status: Acute Code(s): F10.10 - Alcohol abuse, uncomplicated (2) Alcohol withdrawal: Status: Acute Code(s): F10.939 - Alcohol use, unspecified with withdrawal, unspecified Plan #Acute alcohol withdrawal * On alcohol withdrawal protocol with phenobarbital. * On thiamine, folic acid and Multivite. * Adjunctive meds for symptomatic relief * Monitor CIWA score. * #Elevated liver enzymes: This is chronic. Due to chronic alcohol abuse. Will monitor. #Depression: On sertraline DVT prophylaxis: Low risk. Encouraged to ambulate. Disposition: dc tomorrow to inpatient rehab facillity. Medications at Discharge Home Medications hydroxyzine pamoate 25 mg capsule 50 mg PO Q4H PRN PRN mild anxiety #10 caps 08/31/22 sertraline 50 mg tablet 50 mg PO DAILY #30 tabs 08/31/22 Hospital Course Operations None Procedures None Summary of Care Provided Minutes Spent on Discharge: 50 Hospital Course: Patient is a 47-year-old male with a past medical history as outlined was admitted through the ED on 09/20/2022 after being brought in by his friend from [facility] on account of acute alcohol intoxication. He had just finished drinking about 2 L of vodka prior to patient coming into the ED. He was intoxicated and lethargic when he came into the ED. Labs were significant for potassium of 3.4 last alcohol level of 422. He was admitted and managed for acute alcohol intoxication with concerns for impending withdrawal. He was started on alcohol withdrawal protocol with phenobarbital with adjunctive meds for symptomatic relief as well as thiamine and folic acid and multivitamin. He also had hypokalemia and this was corrected. Of note, patient also had elevated liver enzymes which were chronic. This was due to chronic alcohol abuse. Patient tolerated the detox process and was discharged to an inpatient substance abuse program. He is follow-up with his primary care doctor within 1 to 2 weeks. Patient seen and examined prior to discharge. He had no active complaints and had an uneventful night. Review of symptoms otherwise negative. Labs and vitals reviewed. Medication reviewed and reconciled. Physical Exam Const alert and oriented x3 HEENT normocephalic, head/scalp atraumatic, hearing grossly normal bilaterally, moist oral mucous membranes and oropharynx normal Mouth: oral and palatal mucosa normal Eyes PERRL, EOMs intact bilaterally and conjunctivae normal Neck no lymphadenopathy and supple Resp normal respiratory effort, no retractions, no use of accessory muscles and clear to auscultation bilaterally Cardio regular rate, regular rhythm, S1 normal heart sound, S2 normal heart sound and no murmurs GI normal to inspection, nondistended, normoactive bowel sounds, soft to palpation, non-tender and non-distended Extremity normal to inspection, full ROM and no clubbing, cyanosis or edema General Extremity: edema Skin no rashes or lesions noted Neuro oriented x3, CN's II-XII intact bilaterally, moves all extremities and no focal motor deficits Sensorium / Orientation: awake and alert Motor Exam: strength 5/5 throughout Psych affect normal Weight / BMI Weight Weight: 213 lb 10.047 oz Body Mass Index (BMI) 28.2 ABG / Lab / Microbiology Data Result Diagrams: 09/20/22 14:40 09/20/22 14:40 Laboratory: Laboratory Results - last 24 hr 09/23/22 02:18: POC Glucose 82 D/C Instructions Discharge Diet: Low fat / Low cholesterol Discharge Activity: Return to Normal Activity Call your doctor if you observe: Fever of 101 or Higher, Shortness of breath, Dizziness, Swelling in the ankles and Chest pain Meaningful Use Info Meaningful Use Diagnoses (Choose all that apply): None applicable Discharge Plan Admission Admit Date/Time: 09/20/22 16:26 Primary Reason for Your Visit: acute alcohol withdrawal Attending Provider: Beverley Conteh Primary Care Provider: Care Physician,No Primary Consulting Providers: Gill Campos Instructions Patient Instructions: Alcohol Addiction, Alcohol Withdrawal: What to Expect Discharge Orders/Prescriptions Prescriptions: Continued sertraline 50 mg Tablet 50 mg PO DAILY Qty: 30 0RF hydroxyzine pamoate 25 mg Capsule 50 mg PO Q4H PRN PRN (Reason: mild anxiety) Qty: 10 0RF Referrals / Follow Up: Care Physician,No Primary [Primary Care Provider] - Disposition Disposition (needs filled in before D/C Order can be placed): Home, Self Care Charges/Coding Visit Charges Inpatient E&M: 25009 Disch Hosp >30min
== END 2022-09-23 10:05 | disposition home or self-care (01) | DRG 775 ==
LOC: ED 16:27 → MS3 18:31 → MS2 09-21 18:21 → MS3 09-21 18:21 → MS2 09-22 06:58 → MS3 09-22 18:30
PROVIDERS: Admitting Provider Family Medicine; Emergency Provider Emergency Medicine; Visit Provider Student in an Organized Health Care Education/Training Program
DX: F10.239 Alcohol dependence with withdrawal, unspecified (principal); E11.9 Type 2 diabetes mellitus without complications; K70.10 Alcoholic hepatitis without ascites; I10 Essential (primary) hypertension; E78.5 Hyperlipidemia, unspecified; F17.210 Nicotine dependence, cigarettes, uncomplicated; F32.A Depression, unspecified; R74.8 Abnormal levels of other serum enzymes; Y90.8 Blood alcohol level of 240 mg/100 ml or more
CPT/HCPCS: 80053; 82077; 82962; 83735; 84100; 85025; 94668; 99283; J7120; A4216

== ENCOUNTER 2023-03-21 00:41 | Inpatient (IN) | payer OTHER, SELFPAY ==
[2023-03-21] VITALS (9 sets, daily range): BP systolic 137–182; BP diastolic 77–113; PULSE 72–108; RESP 15–96; TEMP 36.1–37; O2SAT 96–100; BMI 34.4
[2023-03-21] MEDS: Ondansetron 4 MG/2 ML Vial IV ×3 (00:55→16:38)
--- NOTE | 2023-03-21 01:00 | EX.ED.DYSGE1 ---
HPI History of Present Illness Chief Complaint: ETOH Intox Informant: patient and parent Narrative Narrative: Patient was brought in by his father for intoxication and requesting detox. Patient has a long history of alcoholism. He went last went through detox a few months ago. He then went up to [facility] in [place] for 60-day inpatient treatment. He has been home for about 5 or 6 weeks. He has been drinking off and on but generally been doing reasonably well. His evidently went through detox for drugs. She got out and came to get the children from this patient. Since the children is gone he is drinking heavily. He drinks a large amount of vodka. It is hard to get from him exactly how much. He has no physical complaints. He does want detox though. It sounds like he is on no routine medications and has no illnesses other than his alcoholism. But when I look at his medical history it sounds like he does have diabetes and high cholesterol. But I am suspicious he is not on any medications at this time. Of note, history and review of systems is severely limited due to extreme intoxication. [facility] Medical History Acute alcoholism Alcohol abuse Alcohol abuse Cirrhosis Diabetes Diabetes mellitus, type 2 HLD (hyperlipidemia) Hypertension Migraines Smoker Tobacco use Home Medications NK 03/21/23 [History Last Taken Unknown] Allergy/AdvReac Type Severity Reaction Status Date / Time No Known Allergies Allergy Verified 03/21/23 00:49 Surgical History No history of previous surgery Social History household members: none Smoking Status: Current every day smoker tobacco type: cigarettes alcohol intake: current alcohol intake frequency: 3 or more drinks per day details: 1 pint-1L 80 proof vodka daily, started age 16. substance use type: does not use ROS ROS ED ROS Narrative Unable to obtain any meaningful or consistent review of systems due to heavy intoxication. EXAM Physical Exam Narrative Exam Narrative: Patient is awake. He is mildly conversant. He was able to walk with assistance back into the room. He had 2 people helping him. He did had saliva coming from his mouth this whole time. He had a gait consistent with alcoholism but no focal deficit was noted with ambulation. HEENT shows no trauma. He is able to handle secretions. He does not need to be intubated. Neck is supple. Lungs are clear bilaterally and his saturations are actually normal at 97% on room air showing no hypoxia. Heart is regular. Abdomen is soft it is not tender. I do not feel a notably enlarged liver. There is no tenderness on exam. No spinal tenderness Extremities show no edema or trauma. There may be a little bit of superficial abrasions over the knees but they do not look new and they are not tender. There is no deformity. Neurologically he is awake he is alert. He denies medicines. He states he would prefer to go to [place] because [facility] have [facility]. I see no focal deficit. Const Vital Signs: 03/21/23 00:42 03/21/23 00:42 03/21/23 04:08 Temperature 97 F L 97.6 F L Temperature Source Temporal Temporal Pulse Rate 96 96 89 Respiratory Rate 16 96 H 16 Blood Pressure 152/100 H 152/100 H 171/79 H Blood Pressure Mean 117 117 109 Blood Pressure Source Monitor Blood Pressure Position Semi-Fowlers Blood Pressure Location Right Arm Pulse Ox 97 97 99 Oxygen Delivery Method Room Air MDM MDM MDM Narrative Medical decision making narrative: Patient has been getting more aggressive here. He keeps trying to get up and leave. He has been redirected multiple times. We have people trying to watch him. I have now given him some Ativan to both prevent withdrawal and to try to get him calm enough to stay in bed. I explained to him that he needs to stay in bed or he will be sedated further and he will have to be physically restrained. He is not safe to get up and walk. He is not able to make his own decisions and have clear thought processes. He seems to be cooperative at this point. But he is getting more aggressive and verbally abusive to staff. Patient CBC shows normal white count hemoglobin and platelets. Patient's electrolytes show mildly low potassium but that should self correct with diet. Glucose is minimally up at 116. His liver function test actually showed no marked abnormalities. AST is mildly up. Patient's alcohol level was high at 364. We have initiated calls to [facility] as per the patient request. He states he would rather go there for detox rather than stay here. Patient has been threatening to leave many times. We have explained to him that he is too intoxicated to make appropriate decisions on his own. If we can get a sober ride that will take responsibility that is fine but we have not been able to get his father on the line at this time. He continues to get more and more verbally abusive. Police were called and have stayed with him for quite some time. He seems to be calming down but as soon as they leave he gets more abusive aggressive and grossly inappropriate with staff members. [facility] [place] [facility] They would like an EKG and a COVID PCR test. They then contacted us again and requested a urine tox screen. These have been ordered. COVID PCR was negative. Talk screen was positive for cannabinoids. Patient will have a repeat alcohol drawn as the [facility] not [facility] him until his alcohol is below 100. After another dose of Ativan the patient has been much quieter. He requested something to get him calmer. Lab Data Attestation: I reviewed the patient's lab results. Labs: Laboratory Results - last 24 hr 03/21/23 03/21/23 00:55 04:05 WBC 10.2 RBC 5.21 Hgb 15.1 Hct 45.4 MCV 87.1 MCH 29.0 MCHC 33.3 RDW Std Deviation 45.6 H RDW Coeff of Sean 14.3 Plt Count 289 MPV 10.9 Immature Gran % (Auto) 0.400 Neut % (Auto) 55.5 Lymph % (Auto) 31.3 [place] % (Auto) 11.7 H Eos % (Auto) 0.1 Baso % (Auto) 1.0 Absolute Neuts (auto) 5.7 Absolute Lymphs (auto) 3.20 Nucleated RBC % 0 PT 13.3 INR 1.0 Sodium 142 Potassium 3.2 L Chloride 105 Carbon Dioxide 25.0 Anion Gap 12 BUN 15 Creatinine 0.88 Estim Creat Clear Calc 115.13 Est GFR (MDRD) Af Amer 119 Est GFR (MDRD) Non-Af 98 BUN/Creatinine Ratio 16.9 Glucose 116 H Calcium 9.2 Total Bilirubin 0.70 AST 48 H ALT 39 Alkaline Phosphatase 84 Total Protein 8.9 H Albumin 4.5 Globulin 4.4 H Albumin/Globulin Ratio 1.0 Urine Opiates Screen NEGATIVE Urine Methadone Screen NEGATIVE Ur Barbiturates Screen NEGATIVE Ur Phencyclidine Scrn NEGATIVE Ur Amphetamines Screen NEGATIVE MDMA (Ecstasy) Screen TNP U Benzodiazepines Scrn NEGATIVE Urine Cocaine Screen NEGATIVE U Cannabinoids Screen POSITIVE H Ur Drug Screen Comment Ethyl Alcohol 364.0 H* EKG Initial EKG: Comments: My independent interpretation of the patient's EKG shows a sore normal sinus rhythm with tachycardic rate at 103. No acute ST elevation or depression. Mild baseline variation. MI interval, QRS duration and QTc are normal. Discharge Plan Triage Chief Complaint: ETOH Intox ED Provider: Avila Wheat Dx/Rx/DC Orders Clinical Impression: Abusive behavior towards people, Alcohol abuse, Alcohol intoxication Prescriptions: No Action NK [facility] Referrals: Care Physician,No Primary [Non-Staff] - Disposition Disposition: Acute Care Hospital Discharge Location: Department of [facility]
[2023-03-21 01:18] LABS: Absolute Neutrophil Count 5.7 X10^3/uL (2.0-7.7); Eosinophil# 0.01 X10^3/uL; Eosinophils% 0.1 % (0-5); Hematocrit 45.4 % (40-54); Hemoglobin 15.1 g/dL (13.0-16.5); Lymphocyte % 31.3 % (19-41); Mean Corp Hgb Conc 33.3 g/dL (32-36); Mean Corpuscular Volume 87.1 fL (80-94); Mean Platelet Vol. 10.9 fl (6.2-12.0); Monocyte% 11.7 % (0-10); NRBC Flagged by Analyzer 0 % (0-5); Neutrophil # 5.69 X10^3/uL (2.7-7.7); Neutrophil % 55.5 % (47-70); Platelet Count 289 K/mm3 (150-450); RBC Distribution Width CV 14.3 % (11.6-14.6); RBC Distribution Width SD 45.6 fl (35.1-43.9); Red Blood Count 5.21 M/mm3 (4.6-6.2); White Blood Count 10.2 K/mm3 (4.4-11.0)
[2023-03-21 01:23] LABS: Prothrombin Time (Protime)PT. 13.3 SECONDS (11.7-14.9)
[2023-03-21] MEDS: LORazepam 2 MG/ML Syringe IV ×5 (01:23→20:31)
[2023-03-21 01:31] LABS: AST(SGOT) 48 U/L (15-37); Alanine Aminotransfer ALT/SGPT 39 U/L (16-61); Albumin, Serum 4.5 g/dL (3.2-5.0); Alkaline Phosphatase 84 U/L (45-117); Anion Gap 12 (5-15); BUN 15 mg/dL (7-18); BUN/Creat Ratio 16.9 RATIO (10-20); Calcium,Total 9.2 mg/dL (8.5-10.1); Chloride 105 mmol/L (98-107); Creatinine, Serum 0.88 mg/dL (0.70-1.30); EST Glomerular Filtration Rate 98 mL/min (>60); Est Glom Filt Rate - Afr Amer 119 mL/min (>60); Estimated Creatinine Clearance 115.13 ml/min; Globulin 4.4 g/dL (2.2-4.2); Glucose 116 mg/dL (74-106); Potassium 3.2 mmol/L (3.5-5.1); Protein, Total 8.9 g/dL (6.4-8.2); Sodium Level 142 mmol/L (136-145)
--- NOTE | 2023-03-21 02:11 | ED.RN ---
Pt attempting several times to get out of bed. Pt is unsteady on feet, stumbling and unable to stand without assistance. Attempted to redirect pt several times, unsuccessful. Dr. Wheat to bedside, also tried to redirect pt, unsuccessful. [facility] nurse called pt's father, Peter and advised of situation. Peter talk to pt and was able to calm pt for a brief period of time. Security at bedside. Pt continuously threatens to hit staff and makes threatening gestures by lunging forward and drawing fists back. Per Dr. Wheat, [facility] Police Department called for assistance. Two [place] [employer] officers at bedside. Pt continues to difficult to redirect and needs much persuasion by PD. Pt eventually lays down in bed.
--- NOTE | 2023-03-21 03:34 | EKG12_ITS ---
Test Reason : Blood Pressure : / mmHG Vent. Rate : 103 BPM Atrial Rate : 103 BPM P-R Int : 166 ms QRS Dur : 090 ms QT Int : 348 ms P-R-T Axes : 041 010 048 degrees QTc Int : 455 ms Sinus tachycardia Otherwise normal ECG Confirmed by REX JAMESON, ANDREWS ([id number]), editor continuity and script PABLO BAHENA ([id number]) on 03/22/2023 9:40:16 AM Referred By: PL Confirmed By:ANDREWS GOODMAN MD
--- NOTE | 2023-03-21 04:09 | ED.RN ---
[facility], unable to [facility] until ETOH is under 100.
[2023-03-21 05:31] LABS: Vista UDS pH Range 4
[2023-03-21 05:32] LABS: Amphetamine Urine VISTA NEGATIVE (<1000 ng/mL); Barbiturate Urine VISTA NEGATIVE (< 200 ng/mL); Benzodiazepine Urine VISTA NEGATIVE (< 200 ng/mL); Cocaine Urine VISTA NEGATIVE (< 300 ng/mL); Methadone Urine VISTA NEGATIVE (< 300 ng/mL); PCP Urine VISTA NEGATIVE (< 25 ng/mL); THC Urine VISTA POSITIVE (< 50 ng/mL)
--- NOTE | 2023-03-21 06:25 | ED.RN ---
Pt at desk yelling at staff I want fucking food - get me fucking food now you stupid fucking bitch. Advised breakfast is served between 7-9am.
[2023-03-21] MEDS: Phenobarbital 32.4 MG Tablet 97.2 MG PO ×2 (09:45→16:39)
--- NOTE | 2023-03-21 10:46 | CM.ED ---
Social Work KATHY contacted by [facility] staff to inquire about patient. SW explained patient's alcohol level will be redrawn at 11am. [facility] staff then explain the patient does not currently have transportation benefits so if he is accepted to the [facility] he will be responsible for the transportation bill, however, it is possible the patient could be approved for transportation benefits in the meantime. [facility] staff state she will inquire internally about that process and call back at noon for an update regarding patient. KATHY updated care team. Aranza Art SHEET FINISHER, APURVA
[2023-03-21 11:53] LABS: Bedside Glucose 115 mg/dL (74-106)
--- NOTE | 2023-03-21 13:04 | ED.RN ---
ordered a meal for pt. pt requesting daily meds. reviewed external list with pt verbally, to best of his ability. dr aware. jeffrey requesting more meds for withdrawl states he feels like shit. withdrawl evaluation completed and decreased post ativan
[2023-03-21] MEDS: 0.9% Normal Saline 1,000 ML 999 ML IV (16:38)
--- NOTE | 2023-03-21 16:45 | HP.PCM.HOS_ITS ---
HPI - General General Date of Admission: 03/21/23 Date of Service: 03/21/23 Chief Complaint: Alcohol withdrawal HPI Narrative LOURDES BALDWIN, is a 47 M who presents to the emergency room at [facility] desiring services for alcohol withdrawal. Patient was scheduled to go to the [facility] but decided to stay here at [facility] instead, he has been having nausea, vomiting, and tremor today, he stopped drinking yesterday. Patient states he drinks about a liter of 80 proof vodka per day, patient has been through detox before, he denies ever going through DTs however, and he states that he has never been hospitalized in the ICU for alcohol withdrawal. Patient's medical problems include type 2 diabetes, chronic depression, hypertension, and hyperlipidemia. Labs obtained in the emergency room showed a normal CBC, patient's potassium was slightly low at 3.2, glucose was 116, AST was 48, talk screen was positive for cannabinoids, patient's ethanol level at 2:00 this afternoon was 89. Patient's blood alcohol level on admission to the emergency room earlier this morning was 364. Patient will be admitted to [place] [id number], orders were entered using alcohol detox order set. Patient was given IV Ativan and oral phenobarb in the emergency room. [facility] Medical History Acute alcoholism Alcohol abuse Alcohol abuse Cirrhosis Diabetes Diabetes mellitus, type 2 HLD (hyperlipidemia) Hypertension Migraines Smoker Tobacco use Home Medications aripiprazole 5 mg tablet (Abilify) 5 mg PO DAILY 03/21/23 [History Last Taken Unknown] bupropion HCl 300 mg 24 hr tablet, extended release 300 mg PO DAILY 03/21/23 [History Last Taken Unknown] gabapentin 300 mg capsule 300 mg PO Q8H 03/21/23 [History Last Taken Unknown] hydroxyzine pamoate 50 mg capsule 50 mg PO BID 03/21/23 [History Last Taken Unknown] naltrexone 50 mg tablet 50 mg PO Q24H 03/21/23 [History Last Taken Unknown] propranolol 10 mg tablet 5 mg PO Q12H 03/21/23 [History Last Taken Unknown] trazodone 150 mg tablet 150 mg PO DAILY 03/21/23 [History Last Taken Unknown] venlafaxine 150 mg capsule,extended release 24 hr 150 mg PO DAILY 03/21/23 [History Last Taken Unknown] Allergy/AdvReac Type Severity Reaction Status Date / Time No Known Allergies Allergy Verified 03/21/23 00:49 Surgical History No history of previous surgery Social History household members: none Smoking Status: Current every day smoker tobacco type: cigarettes alcohol intake: current alcohol intake frequency: 3 or more drinks per day details: 1 pint-1L 80 proof vodka daily, started age 16. substance use type: does not use ROS Constitutional Constitutional: Reports malaise; Denies anorexia, change in weight, chills, fever(s), night sweats or weakness Eyes Eyes: Denies blurry vision, change in eye color, change in vision, discharge from eye(s) or eye pain Cardiovascular Cardiovascular: Denies chest pain, claudication, dyspnea on exertion, edema, lightheadedness or palpitations Respiratory/Chest Respiratory/Chest: Denies cough, excessive phlegm production, hemoptysis, productive cough, shortness of breath at rest or shortness of breath with exertion Gastrointestinal Gastrointestinal: Reports nausea and vomiting; Denies abdominal pain, constipation, diarrhea, dyspepsia, hematemesis, hematochezia or melena Genitourinary Genitourinary: Denies dysuria, hematuria, urinary frequency, urinary hesitancy, urinary incontinence or urinary urgency Musculoskeletal Musculoskeletal: Denies back pain, joint pain, joint stiffness, joint swelling, myalgias or neck pain Neurologic Neurologic: Reports tremor(s); Denies abnormal gait, abnormal speech, dizziness, focal weakness, headache(s), loss of vision, numbness, other visual disturbances, paresthesias, syncope or tingling Psychiatric Psychiatric: Reports anxiety, depression and irritability; Denies cognitive impairment, mood swings or suicidal ideation Endocrine Endocrinology: Denies change in body appearance, cold intolerance, excessive sweating, heat intolerance, polydipsia or polyuria Hematologic/Lymphatic Hematologic/Lymphatic: Denies none, anemia, easy bleeding, easy bruising or lymphadenopathy Allergic/Immunologic Allergic/Immunologic: Denies rhinitis, urticaria, eczemia or asthma Vital Signs Vital Signs Vital Signs: 03/21/23 00:42 03/21/23 00:42 03/21/23 04:08 Temperature 97 F L 97.6 F L Temperature Source Temporal Temporal Pulse Rate 96 96 89 Respiratory Rate 16 96 H 16 Blood Pressure 152/100 H 152/100 H 171/79 H Blood Pressure Mean 117 117 109 Blood Pressure Source Monitor Blood Pressure Position Semi-Fowlers Blood Pressure Location Right Arm Pulse Ox 97 97 99 Oxygen Delivery Method Room Air 03/21/23 11:03 03/21/23 11:33 Temperature 98.1 F Temperature Source Oral Pulse Rate 100 108 H Respiratory Rate 20 H 16 Blood Pressure 149/85 H 164/113 H Blood Pressure Mean 106 130 Blood Pressure Source Monitor Blood Pressure Position Sitting Blood Pressure Location Right Arm Pulse Ox 98 96 Oxygen Delivery Method Room Air Room Air Weight Weight: 115.3 kg Body Mass Index (BMI) 34.4 Physical Exam Const alert, oriented x3 and well nourished Constitutional Narrative: Patient appears tremorous and uncomfortable, he responds appropriately to questions however and is polite. General Appearance: cooperative, well kempt and well developed Orientation / Consciousness: awake, oriented to person, oriented to place and oriented to time HEENT normocephalic and moist oral mucous membranes Eyes PERRL, EOMs intact bilaterally and conjunctivae normal Neck supple, no JVD, thyroid normal and no carotid bruits General: trachea midline Resp normal respiratory effort, no retractions, no use of accessory muscles and clear to auscultation bilaterally Auscultation: Negative for rales, rhonchi or wheezes Cardio regular rate, regular rhythm, S1 normal heart sound, S2 normal heart sound, no murmurs, no rub and no gallops GI normal to inspection, nondistended, normoactive bowel sounds, soft to palpation, non-tender and non-distended Extremity normal to inspection and no clubbing, cyanosis or edema Skin no rashes or lesions noted General Skin Exam: no breakdown Neuro oriented x3, CN's II-XII intact bilaterally, moves all extremities, no focal motor deficits and no sensory deficits noted Sensorium / Orientation: awake, alert, oriented to person, oriented to place and oriented to time Speech: speech normal Psych Psych Narrative: Patient appears nervous and tremorous Results Lab / Micro Data 03/21/23 00:55 03/21/23 00:55 Labs: Laboratory Results - last 24 hr 03/21/23 00:55: WBC 10.2, RBC 5.21, Hgb 15.1, Hct 45.4, MCV 87.1, MCH 29.0, MCHC 33.3, RDW Std Deviation 45.6 H, RDW Coeff of Sean 14.3, Plt Count 289, MPV 10.9, Immature Gran % (Auto) 0.400, Neut % (Auto) 55.5, Lymph % (Auto) 31.3, [place] % (Auto) 11.7 H, Eos % (Auto) 0.1, Baso % (Auto) 1.0, Absolute Neuts (auto) 5.7, Absolute Lymphs (auto) 3.20, Nucleated RBC % 0, PT 13.3, INR 1.0, Sodium 142, Potassium 3.2 L, Chloride 105, Carbon Dioxide 25.0, Anion Gap 12, BUN 15, Creatinine 0.88, Estim Creat Clear Calc 115.13, Est GFR (MDRD) Af Amer 119, Est GFR (MDRD) Non-Af 98, BUN/Creatinine Ratio 16.9, Glucose 116 H, Calcium 9.2, Total Bilirubin 0.70, AST 48 H, ALT 39, Alkaline Phosphatase 84, Total Protein 8.9 H, Albumin 4.5, Globulin 4.4 H, Albumin/Globulin Ratio 1.0, Ethyl Alcohol 364.0 H* 03/21/23 04:05: Urine Opiates Screen NEGATIVE, Urine Methadone Screen NEGATIVE, Ur Barbiturates Screen NEGATIVE, Ur Phencyclidine Scrn NEGATIVE, Ur Amphetamines Screen NEGATIVE, MDMA (Ecstasy) Screen TNP, U Benzodiazepines Scrn NEGATIVE, Urine Cocaine Screen NEGATIVE, U Cannabinoids Screen POSITIVE H, Ur Drug Screen Comment 03/21/23 10:55: Ethyl Alcohol 150.0 03/21/23 11:35: POC Glucose 115 H 03/21/23 14:00: Ethyl Alcohol 89.0 Micro: Microbiology 03/21/23 03:40 Mucosa - Nasopharyngeal Coronavirus COVID-19 PCR - Final Assessment & Plan Assessment/Plan (1) Alcohol abuse: PLAN: Plan 1. Acute alcohol withdrawal-patient will be admitted to [facility], orders are ending using the alcohol detox order set, patient will be seen by addiction social media editor. #2 type 2 diabetes-patient does not appear to be on any medication for type 2 diabetes, fingerstick blood sugars will be obtained and sliding scale insulin will be used if needed #3 essential hypertension-patient's blood pressure is elevated today, this is most probably secondary to acute alcohol withdrawal also in addition to his essential hypertension, patient's blood pressure medications will probably need to be readjusted #4 chronic depression-patient will remain on his outpatient antidepressants #5 chronic alcoholism-complicates care, medical course, recovery, and prognosis #6 hypokalemia-patient will be given oral potassium Total clinical time spent by myself addressing the patient's medical issues, reviewing all of his data, and collaborating with patient's care team: 55 minutes Charges/Coding Visit Charges Inpatient E&M: 34825 Init Hosp L2
--- NOTE | 2023-03-21 16:56 | CM.ED ---
Social Work SW contacted [facility] to further discuss patient's transfer for detox. KATHY spoke with bed control who states [facility] was working on reviewing patient. Bed control staff sent message to Christina to contact this KATHY. KATHY contacted by [facility] who explained the patient has not been accepted to their facility yet. RN reports the patient does not have transportation benefits as he is not service connected and would be responsible for the transportation bill. [facility] fax for clinical documents [phone], RN explained if the patient or [facility] is agreeable to pay bill for transportation, clinicals will then need to be sent to the [facility] for their doctor to review. KATHY consulted with SW Truck Driver'S Offsider Irwin Rivero to further review [facility] vs [facility]. SW advised to inquire about secondary insurance as patient has detoxed at [facility] in the past. SW verified secondary insurance with registration, [facility] Medicaid. SW met with patient and introduced self and role as [facility] SW. Patient lying on hospital bed and agreeable to speaking with SW. Patient shaking and has eyes closed. SW reviewed [facility] with [facility] regarding [facility] vs detoxing at [facility]. Patient inquired about how long he would be at the [facility]. SW explained the patient hasn't been accepted at this time by [facility] as it is dependent on their doctor reviewing his file and patient agreeing to be billed for transportation. SW provided emotional support and encouragement for detox to assist with patient's symptoms. Patient agreeable to detox at [facility] and inquired about his nurse. KATHY updated MD Gilbert and care team Plan: [facility] Aranza Art FILL PLANT OPERATOR, APURVA
[2023-03-21] MEDS: Potassium Chloride Oral Tablet 20 MEQ 40 MEQ PO (18:31)
[2023-03-21] MEDS: Metoprolol Tartrate 50 MG Tablet PO (18:32)
[2023-03-21] MEDS: Phenobarbital 32.4 MG Tablet 64.8 MG PO ×2 (18:49→22:43)
[2023-03-21] MEDS: Ondansetron 8 MG Tablet PO (20:31)
[2023-03-21] MEDS: traZODone 100 MG Tablet 150 MG PO (22:43)
[2023-03-21] MEDS: Gabapentin 300 MG Capsule PO (22:43)
[2023-03-22] VITALS (8 sets, daily range): BP systolic 137–154; BP diastolic 84–94; PULSE 69–84; RESP 14–16; TEMP 36.1–36.9; O2SAT 97–100
[2023-03-22] MEDS: hydrOXYzine PAM 25 MG Capsule 50 MG PO ×2 (03:20→22:44)
[2023-03-22] MEDS: Phenobarbital 32.4 MG Tablet 64.8 MG PO ×6 (03:20→22:43)
[2023-03-22 06:49] LABS: Anion Gap 4 (5-15); BUN 13 mg/dL (7-18); BUN/Creat Ratio 16.4 RATIO (10-20); Calcium,Total 8.7 mg/dL (8.5-10.1); Chloride 106 mmol/L (98-107); Creatinine, Serum 0.79 mg/dL (0.70-1.30); EST Glomerular Filtration Rate 111 mL/min (>60); Est Glom Filt Rate - Afr Amer 135 mL/min (>60); Estimated Creatinine Clearance 128.24 ml/min; Glucose 104 mg/dL (74-106); Potassium 3.5 mmol/L (3.5-5.1); Sodium Level 139 mmol/L (136-145)
[2023-03-22] MEDS: Gabapentin 300 MG Capsule PO ×3 (06:54→22:43)
[2023-03-22] MEDS: Venlafaxine XR 150 MG Capsule PO (06:57)
[2023-03-22] MEDS: ARIPiprazole 5 MG Tablet PO (06:57)
[2023-03-22] MEDS: buPROPion (XL) 300 MG TABLET.XL PO (06:59)
[2023-03-22] MEDS: Ibuprofen 600 MG Tablet PO (08:19)
[2023-03-22] MEDS: LORazepam 1 MG Tablet 2 MG PO ×3 (08:20→19:54)
[2023-03-22] MEDS: Thiamine Hydrochloride 100 MG Tablet PO (08:27)
[2023-03-22] MEDS: Ondansetron 8 MG Tablet PO ×2 (08:27→19:53)
[2023-03-22] MEDS: Dicyclomine 10 MG Capsule 20 MG PO ×2 (08:27→22:44)
[2023-03-22] MEDS: Folic Acid 1 MG Tablet PO (08:27)
[2023-03-22] MEDS: Metoprolol Tartrate 50 MG Tablet PO ×2 (08:27→22:43)
--- NOTE | 2023-03-22 09:30 | PN_ITS ---
Subjective Subjective Patient seen and examined. He complained of tremors and chills. He denied any dizziness, lightheadedness, palpitations, dizziness, nausea or vomiting. Review of systems is otherwise negative. Objective Data Objective Data Vital Signs: Vital Signs Temp Pulse Resp BP Pulse Ox O2 Del Method 98.4 F 71 16 143/92 H 98 Room Air 03/22/23 08:05 03/22/23 08:27 03/22/23 08:05 03/22/23 08:27 03/22/23 08:05 03/22/23 08:05 Oxygen Delivery Method Room Air Weight: 254 lb 3.088 oz Body Mass Index (BMI) 34.4 Intake & Output: Intake and Output for Last 24 Hours 03/20/23 03/21/23 03/22/23 23:59 23:59 23:59 Intake Total 1000 / 1200 200 / 200 Balance 1000 / 1200 200 / 200 Lab / Micro Data 03/21/23 00:55 03/22/23 06:05 Labs: Laboratory Results - last 24 hr 03/21/23 10:55: Ethyl Alcohol 150.0 03/21/23 11:35: POC Glucose 115 H 03/21/23 14:00: Ethyl Alcohol 89.0 03/22/23 06:05: Sodium 139, Potassium 3.5, Chloride 106, Carbon Dioxide 29.0, Anion Gap 4 L, BUN 13, Creatinine 0.79, Estim Creat Clear Calc 128.24, Est GFR (MDRD) Af Amer 135, Est GFR (MDRD) Non-Af 111, BUN/Creatinine Ratio 16.4, Glucose 104, Calcium 8.7 Micro: Microbiology 03/21/23 03:40 Mucosa - Nasopharyngeal Coronavirus COVID-19 PCR - Final Physical Exam Const alert, oriented x3, no apparent distress and well nourished General Appearance: cooperative HEENT normocephalic, head/scalp atraumatic, moist oral mucous membranes and oropharynx normal Eyes PERRL and EOMs intact bilaterally Neck no lymphadenopathy, supple and no JVD Lymph Lymphatic: no lymphadenopathy noted and no lymphedema noted Resp normal respiratory effort, normal air movement and clear to auscultation bilaterally Cardio regular rate, regular rhythm, S1 normal heart sound, S2 normal heart sound and no murmurs GI normal to inspection, nondistended, normoactive bowel sounds, soft to palpation, non-tender and non-distended Extremity normal capillary refill and no clubbing, cyanosis or edema Skin General Skin Exam: no breakdown and turgor normal Neuro CN's II-XII intact bilaterally, no focal motor deficits and no sensory deficits noted Motor Exam: strength 5/5 throughout and general weakness Psych thought process normal and cooperative Mood & Affect: flat affect Assessment & Plan Assessment/Plan (1) Alcohol withdrawal: PLAN: Plan #Acute alcohol withdrawal * on alcohol withdrawal protocol with phenobarbital * on thiamine, folic acid and multivite * adjunctive meds for symptomatic relief * #Depression;on bupropion and abilify (aripiprazole) as well as venlafaxine #Hypokalemia: resolved. Potassium is 3.5 today. #?Diabetes: it is stated that patient is diabetic. there is no evidence of patient being on any diabetic meds. His last A1C in December 2021 was 4.9. DVT prophylaxis: low risk, encourage ambulation Charges/Coding Visit Charges Inpatient E&M: 94791 Subs Hosp L2
--- NOTE | 2023-03-22 11:22 | ADDICTION ---
TW will meet with pt to discuss d/c planning tomorrow when pt feels a little better and can talk a little more.
[2023-03-22] MEDS: traZODone 100 MG Tablet 150 MG PO (22:43)
[2023-03-22] MEDS: Acetaminophen 500 MG Tablet PO (22:44)
[2023-03-23 03:17] VITALS: BP 133/83; PULSE 66; RESP 14; TEMP 36.4; O2SAT 95
[2023-03-23] MEDS: Phenobarbital 32.4 MG Tablet 64.8 MG PO ×6 (03:21→22:45)
[2023-03-23] MEDS: hydrOXYzine PAM 25 MG Capsule 50 MG PO ×4 (03:21→21:52)
[2023-03-23] MEDS: Ibuprofen 600 MG Tablet PO (03:21)
[2023-03-23] MEDS: Gabapentin 300 MG Capsule PO ×3 (06:13→21:21)
[2023-03-23 08:57] VITALS: BP 145/73; PULSE 73; RESP 16; TEMP 36.3; O2SAT 100
[2023-03-23] MEDS: Folic Acid 1 MG Tablet PO (09:04)
[2023-03-23 09:05] VITALS: PULSE 73
[2023-03-23] MEDS: Metoprolol Tartrate 50 MG Tablet PO ×2 (09:05→21:21)
[2023-03-23] MEDS: ARIPiprazole 5 MG Tablet PO (09:05)
[2023-03-23] MEDS: Venlafaxine XR 150 MG Capsule PO (09:05)
[2023-03-23] MEDS: Thiamine Hydrochloride 100 MG Tablet PO (09:05)
[2023-03-23] MEDS: buPROPion (XL) 300 MG TABLET.XL PO (09:05)
--- NOTE | 2023-03-23 09:09 | PN_ITS ---
Subjective Subjective Patient seen and examined. He said he felt much better today and had no complaints. HE had an uneventful night and denies any hallucinations, dizziness, palpitations, chest pain, nausea, vomiting or any other symptoms. Review of systems is otherwise negative. Objective Data Objective Data Vital Signs: Vital Signs Temp Pulse Resp BP Pulse Ox O2 Del Method 97.4 F L 73 16 145/73 H 100 Room Air 03/23/23 08:57 03/23/23 09:05 03/23/23 08:57 03/23/23 08:57 03/23/23 08:57 03/23/23 08:57 Oxygen Delivery Method Room Air Weight: 254 lb 3.088 oz Body Mass Index (BMI) 34.4 Intake & Output: Intake and Output for Last 24 Hours 03/21/23 03/22/23 03/23/23 23:59 23:59 23:59 Intake Total 1000 / 1200 1200 / 1340 140 / 140 Balance 1000 / 1200 1200 / 1340 140 / 140 Lab / Micro Data 03/21/23 00:55 03/22/23 06:05 Micro: Microbiology 03/21/23 03:40 Mucosa - Nasopharyngeal Coronavirus COVID-19 PCR - Final Physical Exam Const alert, oriented x3, no apparent distress and well nourished General Appearance: cooperative, well kempt and well developed Orientation / Consciousness: awake, oriented to person, oriented to place and oriented to time HEENT normocephalic, head/scalp atraumatic, moist oral mucous membranes and oropharynx normal Eyes PERRL, EOMs intact bilaterally and conjunctivae normal Neck no lymphadenopathy, supple, no JVD, thyroid normal and no carotid bruits General: trachea midline Lymph Lymphatic: no lymphadenopathy noted and no lymphedema noted Resp normal respiratory effort, normal air movement, no retractions, no use of accessory muscles and clear to auscultation bilaterally Auscultation: Negative for rales, rhonchi or wheezes Cardio regular rate, regular rhythm, S1 normal heart sound, S2 normal heart sound, no murmurs, no rub and no gallops Palpation: normal PMI GI normal to inspection, nondistended, normoactive bowel sounds, soft to palpation, non-tender and non-distended Extremity normal to inspection, normal capillary refill and no clubbing, cyanosis or edema Skin no rashes or lesions noted General Skin Exam: no breakdown and turgor normal Neuro oriented x3, CN's II-XII intact bilaterally, moves all extremities, no focal motor deficits and no sensory deficits noted Sensorium / Orientation: awake, alert, oriented to person, oriented to place and oriented to time Speech: speech normal Motor Exam: strength 5/5 throughout and general weakness Psych thought process normal and cooperative Appearance: appropriate Assessment & Plan Assessment/Plan (1) Alcohol withdrawal: PLAN: Plan #Acute alcohol withdrawal * on alcohol withdrawal protocol with phenobarbital * on thiamine, folic acid and multivite * adjunctive meds for symptomatic relief * #Depression;on bupropion and abilify (aripiprazole) as well as venlafaxine #Hypokalemia: resolved. #?Diabetes: it is stated that patient is diabetic. there is no evidence of patient being on any diabetic meds. His last A1C in December 2021 was 4.9. DVT prophylaxis: low risk, encourage ambulation Charges/Coding Visit Charges Inpatient E&M: 60453 Subs Hosp L2
[2023-03-23 10:57] LABS: Hemoglobin A1c 5.4 % (3.8-5.6)
--- NOTE | 2023-03-23 11:10 | ADDICTION ---
Met with pt to discuss d/c planning. He is willing to go to an inpatient treatment center. TW tried [facility]. They do not take his [facility] insurance. This worker called the [place] [facility] and spoke with them about potential admission. The nurse passed on the information to the psychiatrist who was currently in a meeting and will be reaching out once he is out. Informed Aron that he may need to take a telephone into client to speak with them for a screen. Will no more tomorrow.
--- NOTE | 2023-03-23 11:42 | CASEMGMT ---
MICA FUENTES: Call received from Minna with the [facility] who states she is available if needed for discharge planning needs. She can be reached at [phone]. Diane Tilley RN CM
--- NOTE | 2023-03-23 14:50 | CHAPLAIN ---
Type of Pastoral Visit _x__ Initial Visit ___ Follow-up Visit ___ On-call Visit ___ General Patient Visit ___ Spiritual Assessment ___ Family Conference ___ Bereavement ___ Rapid Response ___ Code Blue ___ Other (describe below) Pastoral Care Referral From _x__ Patient ___ Family ___ Nurse ___ Physician ___ Electrotyper Apprentice ___ Voice Data Communications Engineer ___ Other (describe below) Sacrament/Intervention _x__ Active listening ___ Anointing ___ Voodoo ___ Bereavement ___ Communion _x__ Estefani exploration ___ _x__ Life review _x__ Prayer ___ Reconciliation ___ Sacrament of Sick _x__ Supportive presence ___ Wedding ___ Other (describe below) Pastoral Comments patient has an established rapport with this drywall stripper through several other admissions for detox; pt is eager to see this drywall stripper and explains that I have had a good period but recently turned back and recognized I needed to come back in before it went too far; pt states that he was caring for his children; pt asks a few questions of a spiritual nature and about things that worry him; pt has some anxieties but speaks of not wanting to have this thing continuing; pt speaks of being 'saved' by his ex who found him unconscious; pt says that he believes he has to continue working on his mental state, his christianity practices, and...; pt given time to talk, a reflective presence, a prayer, and words of encouragement;
[2023-03-23 15:23] VITALS: BP 134/83; PULSE 69; RESP 16; TEMP 36.8; O2SAT 97
[2023-03-23 21:06] VITALS: BP 178/96; PULSE 84; RESP 18; TEMP 36.6; O2SAT 99
[2023-03-23 21:21] VITALS: BP 178/96; PULSE 84
[2023-03-23] MEDS: traZODone 100 MG Tablet 150 MG PO (21:21)
[2023-03-24 03:18] VITALS: BP 112/70; PULSE 92; RESP 18; TEMP 36.5; O2SAT 97
[2023-03-24] MEDS: 0.9% Saline Lock 10 ML Syringe IV (03:22)
[2023-03-24] MEDS: Phenobarbital 32.4 MG Tablet 64.8 MG PO ×2 (03:23→08:49)
[2023-03-24] MEDS: hydrOXYzine PAM 25 MG Capsule 50 MG PO (03:23)
[2023-03-24] MEDS: Gabapentin 300 MG Capsule PO (06:30)
[2023-03-24 08:35] VITALS: BP 136/81; PULSE 73; RESP 16; TEMP 37.1; O2SAT 97
[2023-03-24] MEDS: Thiamine Hydrochloride 100 MG Tablet PO (08:43)
[2023-03-24] MEDS: Folic Acid 1 MG Tablet PO (08:43)
[2023-03-24] MEDS: ARIPiprazole 5 MG Tablet PO (08:43)
[2023-03-24 08:44] VITALS: PULSE 73
[2023-03-24] MEDS: buPROPion (XL) 300 MG TABLET.XL PO (08:44)
[2023-03-24] MEDS: Metoprolol Tartrate 50 MG Tablet PO (08:44)
[2023-03-24] MEDS: Venlafaxine XR 150 MG Capsule PO (08:44)
--- NOTE | 2023-03-24 10:45 | PCM.DC ---
Discharge Instructions Diet Discharge Diet: Low fat / Low cholesterol Activity Discharge Activity: Return to Normal Activity Weight Bearing Status: Weight bearing as tolerated Dressing / Incision Call your doctor if you observe: Fever of 101 or Higher, Shortness of breath, Dizziness and Swelling in the ankles Follow Up Care Test Results: Test results from this visit will be discussed in further detail at your follow-up appointment, if applicable. Discharge Plan Admission Admit Date/Time: 03/21/23 16:54 Primary Reason for Your Visit: acute alcohol withdrawal Attending Provider: Beverley Conteh Primary Care Provider: [facility],[place] Consulting Providers: Nacho Burns Instructions Patient Instructions: Alcohol Addiction, Addiction: Your Treatment Options Discharge Orders/Prescriptions Prescriptions: Continued venlafaxine 150 mg capsule,extended release 24hr 150 mg PO DAILY aripiprazole [Abilify] 5 mg tablet 5 mg PO DAILY propranolol 10 mg tablet 5 mg PO Q12H gabapentin 300 mg capsule 300 mg PO Q8H trazodone 150 mg tablet 150 mg PO DAILY hydroxyzine pamoate 50 mg capsule 50 mg PO BID bupropion HCl 300 mg tablet extended release 24 hr 300 mg PO DAILY naltrexone 50 mg tablet 50 mg PO Q24H Referrals / Follow Up: Care Physician,No Primary [Non-Staff] - [place] [Primary Care Provider] - Within 2 Weeks Disposition Disposition (needs filled in before D/C Order can be placed): Home, Self Care
--- NOTE | 2023-03-24 10:46 | PCM.DC.SUM ---
Providers Date of Admission: 03/21/23 Date of Discharge: 03/24/23 Primary Care Physician: [facility] Reason For Visit: ETOH DETOX Diagnosis Discharge Diagnosis (1) Alcohol withdrawal: Status: Acute Code(s): F10.939 - Alcohol use, unspecified with withdrawal, unspecified Plan #Acute alcohol withdrawal on alcohol withdrawal protocol with phenobarbital on thiamine, folic acid and multivite adjunctive meds for symptomatic relief #Depression;on bupropion and abilify (aripiprazole) as well as venlafaxine #Hypokalemia: resolved. #?Diabetes: it is stated that patient is diabetic. there is no evidence of patient being on any diabetic meds. His last A1C in December 2021 was 4.9. DVT prophylaxis: low risk, encourage ambulation Medications at Discharge Home Medications aripiprazole 5 mg tablet (Abilify) 5 mg PO DAILY 03/21/23 bupropion HCl 300 mg 24 hr tablet, extended release 300 mg PO DAILY 03/21/23 gabapentin 300 mg capsule 300 mg PO Q8H 03/21/23 hydroxyzine pamoate 50 mg capsule 50 mg PO BID 03/21/23 naltrexone 50 mg tablet 50 mg PO Q24H 03/21/23 propranolol 10 mg tablet 5 mg PO Q12H 03/21/23 trazodone 150 mg tablet 150 mg PO DAILY 03/21/23 venlafaxine 150 mg capsule,extended release 24 hr 150 mg PO DAILY 03/21/23 Hospital Course Operations None Procedures None Summary of Care Provided Minutes Spent on Discharge: 47 Hospital Course: Patient is a 47-year-old male with past medical history as outlined was admitted through the ED on 03/21/2023 for acute alcohol withdrawal. He had nausea, vomiting and tremors after he stopped drinking the day before admission. He usually drank a liter of vodka daily. Urine tox was positive for cannabinoids. Serum ethanol level was 364 on admission. He was admitted and managed for acute alcohol withdrawal. He was placed on alcohol withdrawal protocol with phenobarbital. Hospital course was complicated by hallucinations which improved with treatment with the phenbarbital and ativan. He tolerated the 3 day detox process. He remained stable and was discharged home on 03/24/2023. He is to follow up with his PCP within 1-2 weeks. Patient was seen and examined prior to discharge. He had no complaints and had an uneventful night. Review of systems is otherwise negative. Labs and vitals reviewed, home meds reviewed and reconciled. Physical Exam Const alert, oriented x3, no apparent distress and well nourished General Appearance: cooperative, comfortable, well kempt and well developed Orientation / Consciousness: awake, oriented to person, oriented to place and oriented to time HEENT normocephalic, head/scalp atraumatic, hearing grossly normal bilaterally, moist oral mucous membranes and oropharynx normal Mouth: oral and palatal mucosa normal Eyes PERRL, EOMs intact bilaterally and conjunctivae normal Neck no lymphadenopathy, supple, no JVD, thyroid normal and no carotid bruits General: trachea midline Lymph Lymphatic: no lymphadenopathy noted and no lymphedema noted Resp normal respiratory effort, normal air movement, no retractions, no use of accessory muscles and clear to auscultation bilaterally Auscultation: Negative for rales, rhonchi or wheezes Cardio regular rate, regular rhythm, S1 normal heart sound, S2 normal heart sound, no murmurs, no rub and no gallops Palpation: normal PMI GI normal to inspection, nondistended, normoactive bowel sounds, soft to palpation, non-tender and non-distended Extremity normal to inspection, full ROM, normal capillary refill and no clubbing, cyanosis or edema Skin no rashes or lesions noted General Skin Exam: no breakdown and turgor normal Neuro oriented x3, CN's II-XII intact bilaterally, moves all extremities, no focal motor deficits and no sensory deficits noted Sensorium / Orientation: awake, alert, oriented to person, oriented to place and oriented to time Speech: speech normal Motor Exam: strength 5/5 throughout and general weakness Psych thought process normal and cooperative Appearance: appropriate Weight / BMI Weight Weight: 254 lb 3.088 oz Body Mass Index (BMI) 34.4 ABG / Lab / Microbiology Data 03/21/23 00:55 03/22/23 06:05 Laboratory: Laboratory Results - last 24 hr 03/21/23 00:55: Hemoglobin A1c 5.4 Microbiology: Microbiology 03/21/23 03:40 Mucosa - Nasopharyngeal Coronavirus COVID-19 PCR - Final D/C Instructions Discharge Diet: Low fat / Low cholesterol Weight Bearing Status: Weight bearing as tolerated Call your doctor if you observe: Fever of 101 or Higher, Shortness of breath, Dizziness and Swelling in the ankles Meaningful Use Info Meaningful Use Diagnoses (Choose all that apply): None applicable Discharge Plan Admission Admit Date/Time: 03/21/23 16:54 Primary Reason for Your Visit: acute alcohol withdrawal Attending Provider: Beverley Conteh Primary Care Provider: [facility],[place] Consulting Providers: Nacho Burns Instructions Patient Instructions: Alcohol Addiction, Addiction: Your Treatment Options Discharge Orders/Prescriptions Prescriptions: Continued venlafaxine 150 mg capsule,extended release 24hr 150 mg PO DAILY aripiprazole [Abilify] 5 mg tablet 5 mg PO DAILY propranolol 10 mg tablet 5 mg PO Q12H gabapentin 300 mg capsule 300 mg PO Q8H trazodone 150 mg tablet 150 mg PO DAILY hydroxyzine pamoate 50 mg capsule 50 mg PO BID bupropion HCl 300 mg tablet extended release 24 hr 300 mg PO DAILY naltrexone 50 mg tablet 50 mg PO Q24H Referrals / Follow Up: Care Physician,No Primary [Non-Staff] - [facility] [Primary Care Provider] - Within 2 Weeks Disposition Disposition (needs filled in before D/C Order can be placed): Home, Self Care Charges/Coding Visit Charges Inpatient E&M: 19207 Disch Hosp >30min
== END 2023-03-24 11:34 | disposition home or self-care (01) | DRG 897 ==
LOC: ED 15:50 → MS3 17:07
PROVIDERS: Emergency Medicine; Admitting Provider Internal Medicine; Emergency Provider Emergency Medicine; Visit Provider Student in an Organized Health Care Education/Training Program
DX: F10.239 Alcohol dependence with withdrawal, unspecified (principal); E11.9 Type 2 diabetes mellitus without complications; I10 Essential (primary) hypertension; E87.6 Hypokalemia; E78.5 Hyperlipidemia, unspecified; F17.210 Nicotine dependence, cigarettes, uncomplicated; F32.A Depression, unspecified; Y90.8 Blood alcohol level of 240 mg/100 ml or more
CPT/HCPCS: 36415; 80048; 80053; 80307; 82077; 82962; 83036; 85025; 85610; 87635; 93005; 99285; J7030; J7120; A4216; J2405